=== PATIENT | female | born 1960 | race Caucasian/White ===

== ENCOUNTER 2017-05-06 13:35 | Emergency (ER) | payer OTHER ==
[~2017-05-06] VITALS: Ht 160 cm; Wt 128.4 kg
[~2017-05-06 13:35] MED LIST: ABAT250V; ADVAIR; ALBIPROI; ALBU8HFA2 INH; ALBU90I INH; ALBU90OI61 INH; AMOCLA875 PO; AMOX500 PO; ANTOXYBENA OT; AZIT250 PO; Antivert25 MG PO; BENTYL10 MG PO; BENTYL20 MG PO; CEPH500 PO; CHLORPROMAZINE; CIPR500 PO; CITRATE OF MAG296 ML PO; CLON2 PO; CODACE30; CYCL10; CYCL10 PO; DESV50 PO; DILANTIN 400 MG; DOXY100 PO; FLUSAL5005; FLUT110OIA IH; FLUT220OIA IH; GUAN1; HYDACE5 PO; HYDPAM25 PO; IBUP800 PO; LAMO100 PO; LAMO25 PO; LORA.5 PO; LORA1 PO; META400 PO; METAMUCIL660 GM PO; METF500 PO; METO10 PO; METO100ER; MIRALAX17 GM PO; MIRT15; MIRT15 PO; MULVITMINE; MUPI2TO TOP; NAPR550 PO; OLAN10 PO; ONDA4 PO; ONDA4ODT SL; ONDA8ODT MM; OXYACE5T PO; OXYACE7.5T PO; OXYC10ER PO; OXYC5 PO; PENVK500 PO; PHENA200 PO; PROC10 PO; PROCODE120 PO; PROM12.5S PR; PROM25 PO; PROM25S PR; Promethegan12.5 MG RC; QUET200; QUIN10; RANI150; RISP4; RXALBOI INH; RXMETA400 PO; RXOXYACE PO; RXPROM25 PO; RXTRAM50 PO; Roxicodone5 MG PO; SENNP; SULTRIDS PO; TAMS.4ER PO; TRAM50 PO; TRAZ100; TRAZ150T57 PO; TRAZ50 PO; Trazodone HCl300 MG; Ultram50 MG PO; VARE1 PO; VIMOVO 500-201 EACH PO; WATER PILL?; Zofran Odt4 MG SL; Zofran4 MG PO; Zofran8 MG PO; [UNRECOGNIZED DRUG - REMARK]
[2017-05-06] MEDS ORDERED: QUET25 PO (14:14)
[2017-05-06] MEDS ORDERED: CLON.1 PO (14:14)
[2017-05-06] MEDS ORDERED: Oxycodone HCl5 M1 PO (14:28)
[2017-05-06] MEDS ORDERED: PRAZ1 PO (14:31)
[2017-05-06] MEDS ORDERED: PROC5 PO (14:32)
[2017-05-06] MEDS ORDERED: HYDPAM50 PO (14:33)
[2018-02-13] MEDS ORDERED: KETO10 PO (11:51)
[2018-02-13] MEDS ORDERED: CYCL10 PO (11:51)
== END 2017-05-06 14:27 | disposition home or self-care (01) ==
LOC: ER 13:35
DX: T42.6X1A Poisoning by other antiepileptic and sedative-hypnotic drugs, accidental (unintentional), initial encounter (principal); G89.29 Other chronic pain; M54.9 Dorsalgia, unspecified; M79.606 Pain in leg, unspecified; F43.9 Reaction to severe stress, unspecified; F31.9 Bipolar disorder, unspecified; K08.9 Disorder of teeth and supporting structures, unspecified; E66.01 Morbid (severe) obesity due to excess calories; E11.9 Type 2 diabetes mellitus without complications; F17.200 Nicotine dependence, unspecified, uncomplicated; Z88.8 Allergy status to other drugs, medicaments and biological substances; Z88.5 Allergy status to narcotic agent; Z79.899 Other long term (current) drug therapy; Z86.19 Personal history of other infectious and parasitic diseases; Z90.710 Acquired absence of both cervix and uterus; Z68.43 Body mass index [BMI] 50.0-59.9, adult
CPT/HCPCS: 99283

== ENCOUNTER 2017-05-14 14:13 | Inpatient (IN) | payer OTHER ==
[~2017-05-14] VITALS: Ht 162.6 cm; Wt 139.0 kg
[~2017-05-14 14:13] MED LIST changes: +CLON.1 PO; +HYDPAM50 PO; +Oxycodone HCl5 M1 PO; +PRAZ1 PO; +PROC5 PO; +QUET25 PO
[2017-05-14 21:38] LABS: Influenza A Positive (NEGATIVE); Influenza B Negative (NEGATIVE)
[2017-05-15] MEDS ORDERED: ZYPREXA ZYDIS PO (02:19)
[2017-05-15 05:37] LABS: BASOPHILS ABSOLUTE AUTO 0.01 K/mm3 (0.00-0.23); BASOPHILS PERCENT AUTO 0 % (0-2); EOSINOPHILS PERCENT AUTO 0 % (0-6); Hematocrit 40.6 % (33.0-51.0); IMMATURE GRAN ABSOLUTE AUTO 0.08 K/mm3 (0.00-0.10); IMMATURE GRAN PERCENT AUTO 1 % (0-1); LYMPHOCYTES ABSOLUTE AUTO 0.86 K/mm3 (0.84-5.20); LYMPHOCYTES PERCENT AUTO 8 % (21-46); MONOCYTES ABSOLUTE AUTO 0.53 K/mm3 (0.16-1.47); MONOCYTES PERCENT AUTO 5 % (4-13); Mean Corpuscular HGB 29.1 pg (26.0-34.0); Mean Corpuscular Volume 91 fL (80-100); Mean Platelet Volume 11.8 fL (9.1-12.4); NEUTROPHILS ABSOLUTE AUTO 8.71 K/mm3 (1.96-9.15); NEUTROPHILS PERCENT AUTO 86 % (41-73); Platelet Count 86 K/mm3 (150-400); RDW Coefficient Variation 16.2 % (11.7-14.2); Red Blood Cell Count 4.47 M/mm3 (3.80-5.20); White Blood Cell Count 10.19 K/mm3 (4.00-11.30)
[2017-05-15 05:57] LABS: Anion Gap 5 mmol/L (6-16); Blood Urea Nitrogen 8 mg/dL (8-24); Bun/Creatinine Ratio 18.1 (12.0-20.0); CO2, Blood 27 mmol/L (21-32); Calcium, Blood 7.7 mg/dL (8.5-10.1); Chloride, Blood 103 mmol/L (98-108); Creatinine, Blood 0.44 mg/dL (0.40-1.00); Glomerular Filtration Rate >60 (60-); Glucose, Blood 325 mg/dL (70-99); Sodium, Blood 135 mmol/L (136-145)
[2017-05-15] MEDS ORDERED: VALSARTAN-HCTZ1 EACH PO (08:34)
[2017-05-15] MEDS ORDERED: RANI150 PO (08:35)
[2017-05-15] MEDS ORDERED: NAPR550 PO (08:35)
[2017-05-15] MEDS ORDERED: BENZ100A PO (08:36)
[2017-05-15] MEDS ORDERED: GABA300 (08:38)
[2017-05-15] MEDS ORDERED: ASPI81CH PO (08:39)
[2017-05-16 05:16] LABS: BASOPHILS ABSOLUTE AUTO 0.02 K/mm3 (0.00-0.23); BASOPHILS PERCENT AUTO 0 % (0-2); EOSINOPHILS PERCENT AUTO 0 % (0-6); Hematocrit 40.2 % (33.0-51.0); Hemoglobin 12.9 g/dL (11.5-16.0); IMMATURE GRAN ABSOLUTE AUTO 0.11 K/mm3 (0.00-0.10); IMMATURE GRAN PERCENT AUTO 1 % (0-1); LYMPHOCYTES ABSOLUTE AUTO 1.09 K/mm3 (0.84-5.20); LYMPHOCYTES PERCENT AUTO 8 % (21-46); MONOCYTES ABSOLUTE AUTO 0.87 K/mm3 (0.16-1.47); MONOCYTES PERCENT AUTO 6 % (4-13); Mean Corpuscular HGB 29.5 pg (26.0-34.0); Mean Corpuscular HGB Conc 32.1 g/dL (31.5-36.5); Mean Corpuscular Volume 92 fL (80-100); Mean Platelet Volume 11.5 fL (9.1-12.4); NEUTROPHILS ABSOLUTE AUTO 11.88 K/mm3 (1.96-9.15); NEUTROPHILS PERCENT AUTO 85 % (41-73); Platelet Count 105 K/mm3 (150-400); RDW Coefficient Variation 16.9 % (11.7-14.2); RDW Standard Deviation 56.5 fL (35.1-46.3); Red Blood Cell Count 4.38 M/mm3 (3.80-5.20); White Blood Cell Count 13.97 K/mm3 (4.00-11.30)
[2017-05-16 05:40] LABS: Anion Gap 4 mmol/L (6-16); Blood Urea Nitrogen 12 mg/dL (8-24); Bun/Creatinine Ratio 26.7 (12.0-20.0); CO2, Blood 28 mmol/L (21-32); Chloride, Blood 101 mmol/L (98-108); Creatinine, Blood 0.45 mg/dL (0.40-1.00); Glomerular Filtration Rate >60 (60-); Glucose, Blood 335 mg/dL (70-99); Potassium, Blood 4.8 mmol/L (3.5-5.5); Sodium, Blood 133 mmol/L (136-145)
[2017-05-19 15:51] LABS: BASOPHILS ABSOLUTE AUTO 0.04 K/mm3 (0.00-0.23); BASOPHILS PERCENT AUTO 0 % (0-2); EOSINOPHILS PERCENT AUTO 0 % (0-6); Hematocrit 44.3 % (33.0-51.0); Hemoglobin 14.4 g/dL (11.5-16.0); IMMATURE GRAN PERCENT AUTO 1 % (0-1); LYMPHOCYTES ABSOLUTE AUTO 0.98 K/mm3 (0.84-5.20); LYMPHOCYTES PERCENT AUTO 7 % (21-46); MONOCYTES ABSOLUTE AUTO 1.65 K/mm3 (0.16-1.47); MONOCYTES PERCENT AUTO 12 % (4-13); Mean Corpuscular HGB 28.9 pg (26.0-34.0); Mean Corpuscular HGB Conc 32.5 g/dL (31.5-36.5); Mean Platelet Volume 10.4 fL (9.1-12.4); NEUTROPHILS ABSOLUTE AUTO 11.46 K/mm3 (1.96-9.15); NEUTROPHILS PERCENT AUTO 80 % (41-73); Platelet Count 161 K/mm3 (150-400); RDW Coefficient Variation 16.3 % (11.7-14.2); RDW Standard Deviation 53.2 fL (35.1-46.3); Red Blood Cell Count 4.99 M/mm3 (3.80-5.20); White Blood Cell Count 14.33 K/mm3 (4.00-11.30)
[2017-05-19 15:55] LABS: Mean Corpuscular Volume 89 fL (80-100)
[2017-05-19 16:50] LABS: Albumin, Blood 2.9 g/dL (3.4-5.0); Anion Gap 6 mmol/L (6-16); Blood Urea Nitrogen 20 mg/dL (8-24); Bun/Creatinine Ratio 28.7 (12.0-20.0); CO2, Blood 34 mmol/L (21-32); Calcium, Blood 8.9 mg/dL (8.5-10.1); Chloride, Blood 95 mmol/L (98-108); Glomerular Filtration Rate >60 (60-); Glucose, Blood 232 mg/dL (70-99); Phosphorus, Blood 2.9 mg/dL (2.5-4.9); Potassium, Blood 4.5 mmol/L (3.5-5.5); Sodium, Blood 135 mmol/L (136-145)
[2017-05-20 05:46] LABS: BASOPHILS ABSOLUTE AUTO 0.02 K/mm3 (0.00-0.23); BASOPHILS PERCENT AUTO 0 % (0-2); EOSINOPHILS PERCENT AUTO 0 % (0-6); Hematocrit 42.7 % (33.0-51.0); Hemoglobin 13.9 g/dL (11.5-16.0); IMMATURE GRAN PERCENT AUTO 2 % (0-1); LYMPHOCYTES ABSOLUTE AUTO 0.83 K/mm3 (0.84-5.20); LYMPHOCYTES PERCENT AUTO 6 % (21-46); MONOCYTES ABSOLUTE AUTO 1.54 K/mm3 (0.16-1.47); MONOCYTES PERCENT AUTO 12 % (4-13); Mean Corpuscular HGB 29.3 pg (26.0-34.0); Mean Corpuscular HGB Conc 32.6 g/dL (31.5-36.5); Mean Corpuscular Volume 90 fL (80-100); Mean Platelet Volume 10.9 fL (9.1-12.4); NEUTROPHILS ABSOLUTE AUTO 10.38 K/mm3 (1.96-9.15); NEUTROPHILS PERCENT AUTO 80 % (41-73); Platelet Count 157 K/mm3 (150-400); RDW Coefficient Variation 16.2 % (11.7-14.2); RDW Standard Deviation 54.2 fL (35.1-46.3); Red Blood Cell Count 4.75 M/mm3 (3.80-5.20); White Blood Cell Count 12.97 K/mm3 (4.00-11.30)
[2017-05-20 06:19] LABS: Anion Gap 4 mmol/L (6-16); Blood Urea Nitrogen 24 mg/dL (8-24); Bun/Creatinine Ratio 46.5 (12.0-20.0); CO2, Blood 33 mmol/L (21-32); Calcium, Blood 8.4 mg/dL (8.5-10.1); Chloride, Blood 95 mmol/L (98-108); Creatinine, Blood 0.52 mg/dL (0.40-1.00); Glomerular Filtration Rate >60 (60-); Glucose, Blood 268 mg/dL (70-99); Potassium, Blood 4.9 mmol/L (3.5-5.5); Sodium, Blood 132 mmol/L (136-145)
[2017-05-22 05:17] LABS: Hematocrit 45.3 % (33.0-51.0); Hemoglobin 14.7 g/dL (11.5-16.0); Mean Corpuscular HGB 29.2 pg (26.0-34.0); Mean Corpuscular HGB Conc 32.5 g/dL (31.5-36.5); Mean Corpuscular Volume 90 fL (80-100); Mean Platelet Volume 10.4 fL (9.1-12.4); Platelet Count 191 K/mm3 (150-400); RDW Coefficient Variation 16.8 % (11.7-14.2); RDW Standard Deviation 55.8 fL (35.1-46.3); Red Blood Cell Count 5.04 M/mm3 (3.80-5.20); White Blood Cell Count 14.12 K/mm3 (4.00-11.30)
[2017-05-22 06:09] LABS: Anion Gap 5 mmol/L (6-16); Blood Urea Nitrogen 25 mg/dL (8-24); Bun/Creatinine Ratio 44.8 (12.0-20.0); CO2, Blood 33 mmol/L (21-32); Calcium, Blood 8.8 mg/dL (8.5-10.1); Chloride, Blood 96 mmol/L (98-108); Creatinine, Blood 0.56 mg/dL (0.40-1.00); Glomerular Filtration Rate >60 (60-); Glucose, Blood 137 mg/dL (70-99); Potassium, Blood 4.7 mmol/L (3.5-5.5); Sodium, Blood 134 mmol/L (136-145)
[2017-05-24] MEDS ORDERED: ROXICODONE5 MG PO (11:12)
[2017-05-24] MEDS ORDERED: METF500C PO (11:14)
[2017-05-24] MEDS ORDERED: PRED20 PO (11:16)
[2017-05-24] MEDS ORDERED: LORA.5 PO (11:17)
[2018-02-13] MEDS ORDERED: CYCL10 PO (11:51)
[2018-02-13] MEDS ORDERED: KETO10 PO (11:51)
== END 2017-05-24 13:30 | disposition home or self-care (01) | DRG 871 ==
LOC: ER 14:13 → MEDS 14:14 → ENPENDDIS 05-24 11:17 → MEDS 05-24 13:30
PROVIDERS: Family Medicine; Hospitalist; Internal Medicine; Internal Medicine Critical Care Medicine
DX: A41.9 Sepsis, unspecified organism (principal); J96.21 Acute and chronic respiratory failure with hypoxia; D69.6 Thrombocytopenia, unspecified; E87.1 Hypo-osmolality and hyponatremia; E11.65 Type 2 diabetes mellitus with hyperglycemia; E66.01 Morbid (severe) obesity due to excess calories; J44.1 Chronic obstructive pulmonary disease with (acute) exacerbation; Z68.42 Body mass index [BMI] 45.0-49.9, adult; F17.210 Nicotine dependence, cigarettes, uncomplicated; B18.2 Chronic viral hepatitis C; M79.7 Fibromyalgia; F43.10 Post-traumatic stress disorder, unspecified; G89.4 Chronic pain syndrome; R74.0 Nonspecific elevation of levels of transaminase and lactic acid dehydrogenase [LDH]; G47.33 Obstructive sleep apnea (adult) (pediatric); K27.9 Peptic ulcer, site unspecified, unspecified as acute or chronic, without hemorrhage or perforation; I10 Essential (primary) hypertension; F41.9 Anxiety disorder, unspecified; J98.01 Acute bronchospasm; F32.9 Major depressive disorder, single episode, unspecified; T38.0X5A Adverse effect of glucocorticoids and synthetic analogues, initial encounter; J10.1 Influenza due to other identified influenza virus with other respiratory manifestations; Z99.81 Dependence on supplemental oxygen; Z79.899 Other long term (current) drug therapy; Z88.1 Allergy status to other antibiotic agents; Z86.14 Personal history of Methicillin resistant Staphylococcus aureus infection
CPT/HCPCS: 36415; 71046; 80048; 80053; 80069; 82947; 83036; 83605; 84145; 84484; 85025; 85027; 87070; 87205; 87804; 93005; 93010; 94640; 94644; 94760; 96361; 96365; 96366; 96367; 96372; 96374; 96375; 96376; 99285; G0378; J0360; J0456; J0696; J1650; J1815; J1885; J2405; J2920; J2930; J7030; J7050; Q0164; Q0177

== ENCOUNTER → 2017-06-06 | Outpatient (CLI) | payer OTHER ==
[~2017-06-06] MED LIST changes: +AMIT25 PO; +ASPI81CH PO; +BENZ100A PO; +ERYT1OIN BOTHEYES; +GABA300; +Hydroxyzine HCl50 MG PO; +KETO10 PO; +METF500C PO; +PRED20 PO; +RANI150 PO; +ROXICODONE5 MG PO; +VALSARTAN-HCTZ1 EACH PO; +ZYPREXA ZYDIS PO
[2017-06-06 10:15] LABS: BASOPHILS ABSOLUTE AUTO 0.04 K/mm3 (0.00-0.23); BASOPHILS PERCENT AUTO 0 % (0-2); EOSINOPHILS ABSOLUTE AUTO 0.13 K/mm3 (0.00-0.68); EOSINOPHILS PERCENT AUTO 1 % (0-6); Hematocrit 41.9 % (33.0-51.0); Hemoglobin 13.9 g/dL (11.5-16.0); IMMATURE GRAN ABSOLUTE AUTO 0.04 K/mm3 (0.00-0.10); IMMATURE GRAN PERCENT AUTO 0 % (0-1); LYMPHOCYTES ABSOLUTE AUTO 2.12 K/mm3 (0.84-5.20); LYMPHOCYTES PERCENT AUTO 23 % (21-46); MONOCYTES ABSOLUTE AUTO 1.28 K/mm3 (0.16-1.47); MONOCYTES PERCENT AUTO 14 % (4-13); Mean Corpuscular HGB Conc 33.2 g/dL (31.5-36.5); Mean Corpuscular Volume 90 fL (80-100); Mean Platelet Volume 10.7 fL (9.1-12.4); NEUTROPHILS ABSOLUTE AUTO 5.51 K/mm3 (1.96-9.15); NEUTROPHILS PERCENT AUTO 61 % (41-73); Platelet Count 74 K/mm3 (150-400); RDW Coefficient Variation 17.1 % (11.7-14.2); RDW Standard Deviation 55.9 fL (35.1-46.3); Red Blood Cell Count 4.64 M/mm3 (3.80-5.20); White Blood Cell Count 9.12 K/mm3 (4.00-11.30)
== END | disposition home or self-care (01) ==
LOC: LAB EV 10:12
PROVIDERS: Physician Assistant
DX: R21 Rash and other nonspecific skin eruption (principal)
CPT/HCPCS: 85025

== ENCOUNTER 2017-06-20 23:34 | Observation (INO) | payer OTHER ==
[~2017-06-20] VITALS: Ht 162.6 cm; Wt 129.0 kg
[~2017-06-20 23:34] MED LIST changes: -AMIT25 PO; -ERYT1OIN BOTHEYES; -Hydroxyzine HCl50 MG PO; -KETO10 PO
[2017-06-20] MEDS ORDERED: AMIT25 PO (23:53)
[2017-06-20] MEDS ORDERED: Hydroxyzine HCl50 MG PO (23:53)
[2017-06-21 00:20] LABS: PO2 Arterial 60.2 mmHg (80-100); pH Blood Arterial 7.37 (7.35-7.45)
[2017-06-21 00:26] LABS: BASOPHILS ABSOLUTE AUTO 0.05 K/mm3 (0.00-0.23); BASOPHILS PERCENT AUTO 1 % (0-2); EOSINOPHILS ABSOLUTE AUTO 0.04 K/mm3 (0.00-0.68); EOSINOPHILS PERCENT AUTO 0 % (0-6); Hematocrit 41.2 % (33.0-51.0); Hemoglobin 13.6 g/dL (11.5-16.0); IMMATURE GRAN ABSOLUTE AUTO 0.07 K/mm3 (0.00-0.10); IMMATURE GRAN PERCENT AUTO 1 % (0-1); LYMPHOCYTES ABSOLUTE AUTO 2.01 K/mm3 (0.84-5.20); LYMPHOCYTES PERCENT AUTO 20 % (21-46); MONOCYTES ABSOLUTE AUTO 1.31 K/mm3 (0.16-1.47); MONOCYTES PERCENT AUTO 13 % (4-13); Mean Corpuscular HGB 29.6 pg (26.0-34.0); Mean Corpuscular Volume 90 fL (80-100); Mean Platelet Volume 10.9 fL (9.1-12.4); NEUTROPHILS ABSOLUTE AUTO 6.36 K/mm3 (1.96-9.15); NEUTROPHILS PERCENT AUTO 65 % (41-73); Platelet Count 168 K/mm3 (150-400); RDW Coefficient Variation 15.7 % (11.7-14.2); RDW Standard Deviation 51.9 fL (35.1-46.3); Red Blood Cell Count 4.59 M/mm3 (3.80-5.20); White Blood Cell Count 9.84 K/mm3 (4.00-11.30)
[2017-06-21 00:59] LABS: Alanine Aminotransfer (ALT/SGP 86 U/L (12-78); Albumin, Blood 3.1 g/dL (3.4-5.0); Albumin/Globulin Ratio 0.7 (0.8-1.8); Alk Phos 122 U/L (50-136); Anion Gap 6 mmol/L (6-16); Aspartate Aminotrans (AST/SGOT 80 U/L (12-37); Bilirubin, Total 0.5 mg/dL (0.1-1.0); Blood Urea Nitrogen 18 mg/dL (8-24); Bun/Creatinine Ratio 26.5 (12.0-20.0); CO2, Blood 26 mmol/L (21-32); Calcium, Blood 8.7 mg/dL (8.5-10.1); Chloride, Blood 104 mmol/L (98-108); Creatinine, Blood 0.68 mg/dL (0.40-1.00); Ethanol (Alcohol), Blood, Med <3 mg/dL; Globulin, Blood 4.2 g/dL (2.2-4.0); Glomerular Filtration Rate >60 (60-); Glucose, Blood 138 mg/dL (70-99); Potassium, Blood 4.2 mmol/L (3.5-5.5); Salicylate 3.2 mg/dL (2.8-20.0); Sodium, Blood 136 mmol/L (136-145); Total Protein, Blood 7.3 g/dL (6.4-8.2)
[2017-06-21 01:07] LABS: Acetaminophen, Random <2.0 ug/mL (10.0-30.0)
[2017-06-21 04:24] LABS: BASOPHILS ABSOLUTE AUTO 0.05 K/mm3 (0.00-0.23); BASOPHILS PERCENT AUTO 0 % (0-2); EOSINOPHILS ABSOLUTE AUTO 0.02 K/mm3 (0.00-0.68); EOSINOPHILS PERCENT AUTO 0 % (0-6); Hematocrit 40.4 % (33.0-51.0); IMMATURE GRAN PERCENT AUTO 1 % (0-1); LYMPHOCYTES ABSOLUTE AUTO 1.44 K/mm3 (0.84-5.20); LYMPHOCYTES PERCENT AUTO 13 % (21-46); MONOCYTES ABSOLUTE AUTO 1.28 K/mm3 (0.16-1.47); MONOCYTES PERCENT AUTO 11 % (4-13); Mean Corpuscular HGB 28.9 pg (26.0-34.0); Mean Corpuscular HGB Conc 32.2 g/dL (31.5-36.5); Mean Corpuscular Volume 90 fL (80-100); Mean Platelet Volume 11.2 fL (9.1-12.4); NEUTROPHILS ABSOLUTE AUTO 8.31 K/mm3 (1.96-9.15); NEUTROPHILS PERCENT AUTO 74 % (41-73); Platelet Count 180 K/mm3 (150-400); RDW Coefficient Variation 15.8 % (11.7-14.2); RDW Standard Deviation 52.6 fL (35.1-46.3)
[2017-06-21 04:46] LABS: Alanine Aminotransfer (ALT/SGP 84 U/L (12-78); Albumin, Blood 3.2 g/dL (3.4-5.0); Albumin/Globulin Ratio 0.8 (0.8-1.8); Alk Phos 121 U/L (50-136); Anion Gap 8 mmol/L (6-16); Aspartate Aminotrans (AST/SGOT 76 U/L (12-37); Bilirubin, Total 0.6 mg/dL (0.1-1.0); Blood Urea Nitrogen 15 mg/dL (8-24); Bun/Creatinine Ratio 23.8 (12.0-20.0); CO2, Blood 27 mmol/L (21-32); Calcium, Blood 8.9 mg/dL (8.5-10.1); Chloride, Blood 104 mmol/L (98-108); Creatinine, Blood 0.63 mg/dL (0.40-1.00); Glomerular Filtration Rate >60 (60-); Glucose, Blood 137 mg/dL (70-99); Sodium, Blood 139 mmol/L (136-145); Total Protein, Blood 7.2 g/dL (6.4-8.2)
[2017-06-21 05:01] LABS: Source, Urine Clean Catch
[2017-06-21 05:08] LABS: Bilirubin, Urine Neg (Neg); Blood, Urine Neg (Neg); Glucose Qualitative, Urine Neg (Neg); Ketones, Urine Neg (Neg); Leukocyte Esterase, Urine Neg (Neg); Nitrite, Urine Neg (Neg); Protein, Urine Neg (Neg); Specific Gravity, Urine 1.015 (1.003-1.022); Urobilinogen, Urine 1+ (Normal)
[2017-06-21 05:22] LABS: U Amphetamine Screen Not Detected; U Barbituate Screen Not Detected; U Benzodiazapine Screen Not Detected; U Buprenorphine Screen Not Detected; U Cannabinoids Screen DETECTED; U Cocaine Screen Not Detected; U Methadone Screen Not Detected; U Methamphetamine Screen Not Detected; U Opiates Screen Not Detected; U Oxycodone Screen Not Detected; U Phencyclidine Screen Not Detected; U Propoxyphene Screen Not Detected
[2017-06-21 05:30] LABS: Appearance, Urine Clear (Clear); Color, Urine Yellow (P-Yellow)
[2018-02-13] MEDS ORDERED: KETO10 PO (11:51)
[2018-02-13] MEDS ORDERED: CYCL10 PO (11:51)
== END 2017-06-22 15:03 | disposition home health service (06) ==
LOC: ER 23:34 → ICUW 23:35 → MEDS 06-21 10:12 → ENPENDDIS 06-22 10:00 → MEDS 06-22 15:03
PROVIDERS: Emergency Medicine; Internal Medicine
DX: T50.901A Poisoning by unspecified drugs, medicaments and biological substances, accidental (unintentional), initial encounter (principal); G93.40 Encephalopathy, unspecified; J44.9 Chronic obstructive pulmonary disease, unspecified; M79.7 Fibromyalgia; F43.10 Post-traumatic stress disorder, unspecified; G89.29 Other chronic pain; E66.01 Morbid (severe) obesity due to excess calories; Z68.42 Body mass index [BMI] 45.0-49.9, adult; Z88.8 Allergy status to other drugs, medicaments and biological substances; F17.210 Nicotine dependence, cigarettes, uncomplicated; Z79.891 Long term (current) use of opiate analgesic; Z79.82 Long term (current) use of aspirin; Z79.899 Other long term (current) drug therapy
CPT/HCPCS: 36415; 36600; 80053; 80175; 81003; 81025; 82803; 82947; 84439; 84443; 85025; 93005; 93010; 96361; 96372; 96374; 96375; 96376; 97116; 97162; 97530; 99285; G0378; G0480; G8978; G8979; J1650; J2060; J2405; J7030

== ENCOUNTER → 2017-12-13 | Outpatient (CLI) | payer OTHER ==
[~2017-12-13] MED LIST changes: +AMIT25 PO; +ERYT1OIN BOTHEYES; +Hydroxyzine HCl50 MG PO
== END ==
LOC: LAB SHORT 09:11 → LAB 09:11
DX: R35.0 Frequency of micturition (principal)
CPT/HCPCS: 87086

== ENCOUNTER 2017-12-18 17:17 | Emergency (ER) | payer OTHER ==
[~2017-12-18] VITALS: Ht 162.6 cm; Wt 135.6 kg
[~2017-12-18 17:17] MED LIST changes: -ERYT1OIN BOTHEYES
[2017-12-18] MEDS ORDERED: ERYT1OIN BOTHEYES (17:47)
== END 2017-12-18 17:58 | disposition home or self-care (01) ==
LOC: ER 17:17
DX: H10.9 Unspecified conjunctivitis (principal); Z88.1 Allergy status to other antibiotic agents; Z79.899 Other long term (current) drug therapy; Z79.82 Long term (current) use of aspirin; Z79.84 Long term (current) use of oral hypoglycemic drugs; E11.9 Type 2 diabetes mellitus without complications; F31.9 Bipolar disorder, unspecified; F17.210 Nicotine dependence, cigarettes, uncomplicated
CPT/HCPCS: 99282

== ENCOUNTER 2019-02-19 08:40 | Inpatient (IN) | payer OTHER ==
[~2019-02-19] VITALS: Ht 162.6 cm; Wt 132.0 kg
[~2019-02-19 08:40] MED LIST changes: +ERYT1OIN BOTHEYES; +KETO10 PO
[2019-02-19] MEDS ORDERED: QUET200 PO (09:27)
[2019-02-19 09:28] LABS: BASOPHILS ABSOLUTE AUTO 0.03 K/mm3 (0.00-0.23); BASOPHILS PERCENT AUTO 0 % (0-2); EOSINOPHILS ABSOLUTE AUTO 0.02 K/mm3 (0.00-0.68); EOSINOPHILS PERCENT AUTO 0 % (0-6); Hematocrit 41.2 % (33.0-51.0); IMMATURE GRAN ABSOLUTE AUTO 0.04 K/mm3 (0.00-0.10); IMMATURE GRAN PERCENT AUTO 0 % (0-1); LYMPHOCYTES ABSOLUTE AUTO 1.44 K/mm3 (0.84-5.20); LYMPHOCYTES PERCENT AUTO 13 % (21-46); MONOCYTES PERCENT AUTO 12 % (4-13); Mean Corpuscular HGB 31.6 pg (26.0-34.0); Mean Corpuscular HGB Conc 31.6 g/dL (31.5-36.5); Mean Corpuscular Volume 100 fL (80-100); Mean Platelet Volume 10.8 fL (9.1-12.4); NEUTROPHILS PERCENT AUTO 75 % (41-73); Platelet Count 115 K/mm3 (150-400); RDW Coefficient Variation 13.6 % (11.7-14.2); RDW Standard Deviation 50.3 fL (35.1-46.3); Red Blood Cell Count 4.11 M/mm3 (3.80-5.20); White Blood Cell Count 11.13 K/mm3 (4.00-11.30)
[2019-02-19 09:38] LABS: Alanine Aminotransfer (ALT/SGP 31 U/L (12-78); Albumin, Blood 3.5 g/dL (3.4-5.0); Albumin/Globulin Ratio 0.9 (0.8-1.8); Alk Phos 95 U/L (50-136); Anion Gap 5 mmol/L (6-16); Aspartate Aminotrans (AST/SGOT 37 U/L (12-37); Bilirubin, Total 0.5 mg/dL (0.1-1.0); Blood Urea Nitrogen 9 mg/dL (8-24); Bun/Creatinine Ratio 14.8 (12.0-20.0); CO2, Blood 32 mmol/L (21-32); Calcium, Blood 8.7 mg/dL (8.5-10.1); Chloride, Blood 101 mmol/L (98-108); Creatinine, Blood 0.61 mg/dL (0.40-1.00); Globulin, Blood 3.8 g/dL (2.2-4.0); Glomerular Filtration Rate >60 (60-); Glucose, Blood 113 mg/dL (70-99); Sodium, Blood 138 mmol/L (136-145); Total Protein, Blood 7.3 g/dL (6.4-8.2); Troponin I <0.015 ng/mL (0.000-0.040)
[2019-02-19] MEDS ORDERED: BUSP10 PO (09:47)
[2019-02-19] MEDS ORDERED: CLON.5 PO (10:25)
[2019-02-19 10:33] LABS: Influenza A Negative (NEGATIVE); Influenza B Negative (NEGATIVE)
[2019-02-19 14:51] LABS: Adenovirus Not Detected (NOT DETECT); Bordetella pertussis Not Detected (NOT DETECT); Chlamydophila pneumoniae Not Detected (NOT DETECT); Coronavirus 229E Not Detected (NOT DETECT); Coronavirus HKU1 Not Detected (NOT DETECT); Coronavirus NL63 Not Detected (NOT DETECT); Coronavirus OC43 Not Detected (NOT DETECT); Human Metapneumovirus Not Detected (NOT DETECT); Human Rhinovirus/Enterovirus Not Detected (NOT DETECT); Influenza A Not Detected (NOT DETECT); Influenza A/2009-H1 Not Detected (NOT DETECT); Influenza A/H1 Not Detected (NOT DETECT); Influenza A/H3 Not Detected (NOT DETECT); Influenza B Not Detected (NOT DETECT); Mycoplasma pneumoniae Not Detected (NOT DETECT); Parainfluenza Virus 1 Not Detected (NOT DETECT); Parainfluenza Virus 2 Not Detected (NOT DETECT); Parainfluenza Virus 3 Not Detected (NOT DETECT); Parainfluenza Virus 4 Not Detected (NOT DETECT); Respiratory Syncytial Virus Not Detected (NOT DETECT)
--- NOTE | 2019-02-19 18:36 | NUR ---
SHIFT SUMMARY PT ALERT AND ORIENTED. VS STABLE. O2 SATS REMAIN ABOVE 90% ON 4L WITH PT'S HOME MASK SHE REPORTS A "SIMPLE MASK". BE STABLE. HR NSR. PT COMPLAINS OF PAIN IN HER HIPS THAT IS CHRONIC. PT MEDICATED AND REPOSITIONED NEEDED. PT ABLE TO AMBULATE [place] [facility] [place]. PT DYSPNEIC ON EXERTION. WILL CONTINUE TO MONITOR AND REPORT TO ONCOMING RN. CALL LIGHT IN REACH.
[2019-02-19 18:51] LABS: U Amphetamine Screen Not Detected; U Barbituate Screen Not Detected; U Benzodiazapine Screen Not Detected; U Buprenorphine Screen Not Detected; U Cannabinoids Screen DETECTED; U Cocaine Screen Not Detected; U Methadone Screen Not Detected; U Methamphetamine Screen Not Detected; U Opiates Screen Not Detected; U Oxycodone Screen DETECTED; U Phencyclidine Screen Not Detected; U Propoxyphene Screen Not Detected
--- NOTE | 2019-02-19 22:00 | NUR ---
Assumed care Pt presents sitting in bed, tripoding and working hard to breathe. Pt complains of SOB at time of initial assessment. RT in with pt at bedside for breathing tx and sx quickly resolved. Pt c/o anxiety and this RN educated pt on medication times and administration precautions. Pt verbalized understanding and has been cooperative with care. VSS with exception of tachypnea. see shift assessment for detailed systems assessment. This pt is alert and oriented but exhibits anxiety. No acute distress noted at this time. Will continue to monitor and update as needed.
[2019-02-20 03:20] LABS: BASOPHILS PERCENT AUTO 0 % (0-2); EOSINOPHILS PERCENT AUTO 0 % (0-6); Hematocrit 40.6 % (33.0-51.0); Hemoglobin 12.6 g/dL (11.5-16.0); IMMATURE GRAN ABSOLUTE AUTO 0.03 K/mm3 (0.00-0.10); IMMATURE GRAN PERCENT AUTO 0 % (0-1); LYMPHOCYTES ABSOLUTE AUTO 0.65 K/mm3 (0.84-5.20); LYMPHOCYTES PERCENT AUTO 10 % (21-46); MONOCYTES ABSOLUTE AUTO 0.31 K/mm3 (0.16-1.47); MONOCYTES PERCENT AUTO 5 % (4-13); Mean Corpuscular HGB 31.3 pg (26.0-34.0); Mean Corpuscular Volume 101 fL (80-100); Mean Platelet Volume 10.6 fL (9.1-12.4); NEUTROPHILS ABSOLUTE AUTO 5.77 K/mm3 (1.96-9.15); NEUTROPHILS PERCENT AUTO 85 % (41-73); Platelet Count 102 K/mm3 (150-400); RDW Coefficient Variation 13.5 % (11.7-14.2); Red Blood Cell Count 4.03 M/mm3 (3.80-5.20); White Blood Cell Count 6.76 K/mm3 (4.00-11.30)
[2019-02-20 03:36] LABS: Alanine Aminotransfer (ALT/SGP 25 U/L (12-78); Albumin, Blood 3.3 g/dL (3.4-5.0); Albumin/Globulin Ratio 0.8 (0.8-1.8); Alk Phos 88 U/L (50-136); Anion Gap 3 mmol/L (6-16); Aspartate Aminotrans (AST/SGOT 28 U/L (12-37); Bilirubin, Total 0.4 mg/dL (0.1-1.0); Blood Urea Nitrogen 10 mg/dL (8-24); Bun/Creatinine Ratio 16.4 (12.0-20.0); CO2, Blood 34 mmol/L (21-32); Calcium, Blood 8.7 mg/dL (8.5-10.1); Chloride, Blood 99 mmol/L (98-108); Creatinine, Blood 0.61 mg/dL (0.40-1.00); Glomerular Filtration Rate >60 (60-); Glucose, Blood 169 mg/dL (70-99); Potassium, Blood 4.4 mmol/L (3.5-5.5); Sodium, Blood 136 mmol/L (136-145); Total Protein, Blood 7.3 g/dL (6.4-8.2)
--- NOTE | 2019-02-20 07:56 | NUR ---
Shift Summary Pt with uneventful night, no changes to oxygen demand, pt wore cpap while sleeping and "simple face mask" at 4L when awake. VSS and no signs of distress noted. No acute declines noted this shift, no changes from initial shift assessment. pt transfer steady with SBA to BSC for voiding. GI panal still yet to be collected d/t absence of BM this shift. Pt takes pills whole with water, uses call light appropriately, able to make needs known. She is alert and oriented but anxious which is baseline for her. Pt complains of pain throughout shift and medicated as per orders and clinical judgememt. Pt able to move self around in bed independantly. Monitored and care provided by this Rn until handoff given to day RN.
--- NOTE | 2019-02-20 16:45 | NUR ---
TRANSFER NOTE PT ALERT AND ORIENTED. VS STABLE. O2 SATS REMAIN ABOVE 90% ON 6L SIMPLE MASK. HR NSR BEFORE TELEMETRY DISCONTINUED. ORDERS FOR MEDICAL STATUS THIS AM. PT ABLE TO AMBULATE TO BATHROOM WITH SBA. PT COMPLAINS OF PAIN OCCASIONALLY IN HER HIPS. PT REPOSITIONS HERSELF NEEDED AND MEDICATED. REPORT CALLED TO MEDICAL FLOOR RN TO TAKE OVER CARE. PT TAKEN UP BY WHEELCHAIR.
--- NOTE | 2019-02-20 17:07 | NUR ---
PATIENT ARRIVES FROM PCU VIA W/C AT ABOUT 1650. REQUEST COUGH MED. REFUSED TAYA SMITH. DISCUSS MUCINEX HELPING TO THIN OUT SECRETIONS AND POSSIBLY COUGHING MORE, BUT SHOULD HELP IN THE LONG RUN. LUNGS WHEEZEY/TIGHT T/O. .ON SIMPLE MASK AT 6 LPM W/2 EXTENTIONS SO SHE CAN REACH BATHROOM. AWARE NEEDS STOOL SAMPLE AND SPUTUM. SPEAKS IN COMPLETE SENTENCES. IV X 2 PATENT. ALREADY REQUESTING SEROQUEL AND PAIN MEDS. ADVISED WHEN SEROQUEL IS DUE AND WILL BRING IN PAIN MEDS WHEN DUE. COOPERATIVE. BED IN LOW POSITION. ORIENTED TO ROOM. TM.
--- NOTE | 2019-02-21 04:15 | NUR ---
SHIFT SUMMARY- PT. RESTED COMFORTABLY T/O THE NIGHT, NO APPARENT DISTRESS NOTED. WEARING O2 MASK. C/O PAIN X1, PAIN MED GIVEN PER EMAR. PT. ON C-DIFF PRECAUTIONS, HAS NOT HAD BM YET. NO ACUTE CHANGES T/O THE NIGHT. CALL LIGHT WITHIN REACH AND SIDE RAILS UP X2. WILL CONT TO MONITOR.
--- NOTE | 2019-02-21 17:00 | NUR ---
PT UNABLE TO PROVIDE SPUTUM SAMPLE- NON PRODUCTIVE COUGH.
--- NOTE | 2019-02-21 17:39 | NUR ---
SHIFT SUMMARY SLEPT ON AND OFF THROUGHOUT DAY. CALM COOPERATIVE. RHONCHI AND WHEEZES TO UPPER LOBES WITH INTERMITTENT COUGH. UNABLE TO PROVIDE SPUTUM SAMPLE. REMOVED FROM CONTACT PRECAUTIONS DUE TO NO DIARRHEA/BM'S IN PAST 48 HOURS. BOWEL CARE STARTED. CALLS APPROPRIATELY. NEBS PRN. PREFERS MASK FOR OXYGEN ADMINISTRATION.
--- NOTE | 2019-02-22 05:58 | NUR ---
SHIFT SUMMARY NO ACUTE CHANGES TONIGHT. PT REQUIRING 6L VIA MASK, ON CONT PULSE OX. INDEPENDENT IN RM, UP SEVERAL TIMES TONIGHT. MEDICATED TWICE WITH PO PRN OXYCODONE FOR BACK AND HIP PAIN. LS COARSE, WHEEZE, RHONCHI. DYSPNEA WITH MOVEMENT. PT ANXIOUS AT TIMES. REQUESTS SEVERAL DRINKS AND SNACKS THROUGH THE NIGHT. NO OTHER CHANGES TO REPORT. WILL CONT TO MONITOR AND PROVIDE CARE UNTIL PRESUMED BY ONCOMING RN.
--- NOTE | 2019-02-22 17:48 | NUR ---
PT ALERT AND ORIENTED THIS SHIFT. PT INDEPENDENT IN ROOM. PT MEDICATED X1 FOR PAIN IN HIP AND BACK. PT PROVIDED RECLINING CHAIR TO SIT UP OUT OF BED. PT HAS USED HER CALL LIGHT APPROPRIATELY THIS SHIFT. PTS BREATH SOUNDS CONTINUE TO SOUND COARSE AND WHEEZY. PT ON 3L VIA MASK DUE TO INTOLERANCE OF NC. PT CURRENTLY UP IN CHAIR EATING DINNER, CALL LIGHT IN REACH. WILL CONTINUE TO MONITOR.
--- NOTE | 2019-02-23 06:30 | NUR ---
SHIFT SUMMARY NO ACUTE EVENTS OVERNIGHT. CURRENTLY ON 3L VIA MASK, UNABLE TO WEAR NC. O2 SATS >92% T/O NIGHT. LS COARSE WHEEZE, HAS IMPROVED COMPARED TO LAST NIGHT. PT REPORTS RESP DISTRESS HAS IMPROVED WELL. TREATED FOR CHRONIC GENERALIZED PAIN TWICE WITH 5MG PO OXYCODONE. ADMINISTRED PO ATIVAN PRN PER PT REQUEST FOR ANXIETY R/T FINANCIAL ISSUES AT HOME. REQUESTS SNACKS VERY FREQUENTLY, EDUCATED THE PT ON DIET AND WEIGHT LOSS FOR HEALTH. NO OTHER CHANGES TO REPORT. WILL CONT TO MONITOR AND PROVIDE CARE UNTIL PRESUMED BY ONCOMING RN.
--- NOTE | 2019-02-23 18:33 | NUR ---
PT ALERT AN ORIENTED THROUGHOUT THIS SHIFT. PT INDEPENDENT IN ROOM. PT BREATHING EASIER THIS SHIFT. PT LESS WINDED WHEN TRANSFERING TO BEDSIDE CHAIR THAN YESTERDAY. LUNG SOUNDS REMAIN WHEEZY, BUT LACK COARSE SOUNDS OF PREVIOUS SHIFT. PT UP IN CHAIR, CALL LIGHT IN REACH. WILL CONTINUE TO MONITOR.
[2019-02-24 05:23] LABS: Albumin, Blood 3.3 g/dL (3.4-5.0); Anion Gap 7 mmol/L (6-16); Blood Urea Nitrogen 20 mg/dL (8-24); Bun/Creatinine Ratio 33.1 (12.0-20.0); CO2, Blood 33 mmol/L (21-32); Calcium, Blood 8.9 mg/dL (8.5-10.1); Chloride, Blood 96 mmol/L (98-108); Glomerular Filtration Rate >60 (60-); Glucose, Blood 99 mg/dL (70-99); Phosphorus, Blood 3.2 mg/dL (2.5-4.9); Potassium, Blood 4.1 mmol/L (3.5-5.5); Sodium, Blood 136 mmol/L (136-145)
--- NOTE | 2019-02-24 05:50 | NUR ---
SHIFT SUMMARY: 58 Y/O OBESE FEMALE RESTED COMFORTABLY ALL SHIFT, C/O BACK PAIN RATED 6/10 WITH OXYCODONE 5MG PO X 1 TABLET GIVEN WITH RELIEF FELT, PT WAS NOTED TO BE ASKING FOR NUMEROUS DRINKS BY THIS NURSE AND WAS ENCOURAGED TO CURTAIL PO LIQUID INTAKE DUE COPD AND POSSIBLE FLUID OVERLOAD (OTHER CUSTOMER SERVICE ENGINEER ADVISED TO NOT GIVE HER MORE DRINKS) WITH PATIENT IN AGREEMENT, PT HAS MUCH ANXIETY AND IT TIMES VERY OBSESSIVE AND COMPULSIVE WITH THIS BEHAVIOR IT WAS NOTED, ABLE TO AMBULATE BATHROOM AND BACK WITHOUT DIFFICULTY, HAPPY AND COOPERATIVE WITH NURSING STAFF, BED LOW POSITION WITH CALL LIGHT AT SIDE.
--- NOTE | 2019-02-24 19:33 | NUR ---
SHIFT SUMMARY: NO ACUTE CHANGES TO REPORT THOIS SHIFT. PT A&O; ANXIOUS; COOPERATIVE WITH CARE. MEDICATED FOR PAIN & ANXIETY PER EMAR. PT ON 3L O2 VIA NC; PT USES 3L @ HOME; LUNGS WHEEZY; IV STEROIDS CONTINUING; RT FOLLOWING. PT EXPECTED TO TRANSITION TO ORAL STEROIDS 02/25. REPORT GIVEN TO ONCOMING RN.
--- NOTE | 2019-02-25 04:07 | NUR ---
SHIFT SUMMARY PT DESATURATES TO HIGH 80'S% WHEN SHE REMOVES HER O2 MASK. REINFORCING THE NEED TO WEAR HER O2 MASK DOES HELP. WE DID LIMIT HER FREQUENT SNACKING AND DRINKING THIS SHIFT. REINFORCING EDUCATION ABOUT THE POTENTIAL EFFECTS OF THOSE BEHAVIORS ON HER HEALTH SITUATION. SHE DID NOT REQUIRE PAIN OR ANXIETY MEDICATION SO FAR THIS SHIFT. SHE WAS ABLE TO REST COMFORTABLY WITH WARMED BLANKETS. NO REMARKABLE CHANGES THIS SHIFT. I WILL PASS ALONG TO DAY SHIFT THE NEED TO TITRATE O2 DOWN TO WHAT THE PT USES AT HOME, THE PLAN IS TO SWITCH TO ORAL MEDS, TITRATE O2 TO HOME LEVEL, TAPER STEROIDS AND DISCHARGE.
[2019-02-25] MEDS ORDERED: GUAI600T33 PO (12:20)
[2019-02-25] MEDS ORDERED: Prednisone10 MG PO (12:21)
[2019-02-25] MEDS ORDERED: BUDE6HFA INH (12:22)
--- NOTE | 2019-02-25 14:48 | NUR ---
PATIENT DISCHARGE: PATIENT DISCHARGED TO HOME THIS SHIFT. MEDICATION RECONCILIATION COMPLETED; MED LIST FAXED TO [facility]. DISCHARGE EDUCATION COMPLETED WITH PATIENT. PATIENT TRANSPORTED TO EXIT BY WHEELCHAIR AT 1336. PATIENT DEPARED [facility] VIA PRIVATE AUTO.
== END 2019-02-25 13:36 | disposition home or self-care (01) | DRG 189 ==
LOC: ER 08:40 → PCU 11:40 → MEDS 02-20 16:50
PROVIDERS: Emergency Medicine; Internal Medicine; Nurse Practitioner Acute Care; Physician Assistant; ADMIT Internal Medicine
DX: J96.21 Acute and chronic respiratory failure with hypoxia (principal); J44.1 Chronic obstructive pulmonary disease with (acute) exacerbation; J44.0 Chronic obstructive pulmonary disease with (acute) lower respiratory infection; E66.2 Morbid (severe) obesity with alveolar hypoventilation; Z68.42 Body mass index [BMI] 45.0-49.9, adult; J20.8 Acute bronchitis due to other specified organisms; I10 Essential (primary) hypertension; F31.9 Bipolar disorder, unspecified; F20.9 Schizophrenia, unspecified; B18.2 Chronic viral hepatitis C; E11.65 Type 2 diabetes mellitus with hyperglycemia; M79.7 Fibromyalgia; D69.6 Thrombocytopenia, unspecified; Z99.81 Dependence on supplemental oxygen; J11.1 Influenza due to unidentified influenza virus with other respiratory manifestations; F17.210 Nicotine dependence, cigarettes, uncomplicated; G89.4 Chronic pain syndrome; F41.0 Panic disorder [episodic paroxysmal anxiety]
CPT/HCPCS: 0099U; 36415; 71046; 80053; 80069; 84145; 84484; 85025; 87070; 87205; 87804; 93005; 93010; 94640; 94644; 94660; 94762; 96374; 99285-25; A9270; J0456; J1650; J2920; J2930; J7030; J7050; J7512; J7605

== ENCOUNTER 2019-03-25 10:18 | Emergency (ER) | payer OTHER ==
[~2019-03-25] VITALS: Ht 162.6 cm; Wt 127.0 kg
[~2019-03-25 10:18] MED LIST changes: +BUDE6HFA INH; +BUSP10 PO; +CLON.5 PO; +GUAI600T33 PO; +Prednisone10 MG PO; +QUET200 PO; -QUET25 PO
[2019-03-25 11:09] LABS: BASOPHILS ABSOLUTE AUTO 0.03 K/mm3 (0.00-0.23); BASOPHILS PERCENT AUTO 0 % (0-2); EOSINOPHILS ABSOLUTE AUTO 0.07 K/mm3 (0.00-0.68); EOSINOPHILS PERCENT AUTO 1 % (0-6); Hematocrit 47.1 % (33.0-51.0); IMMATURE GRAN ABSOLUTE AUTO 0.03 K/mm3 (0.00-0.10); IMMATURE GRAN PERCENT AUTO 0 % (0-1); LYMPHOCYTES PERCENT AUTO 25 % (21-46); MONOCYTES ABSOLUTE AUTO 0.92 K/mm3 (0.16-1.47); MONOCYTES PERCENT AUTO 8 % (4-13); Mean Corpuscular HGB 30.2 pg (26.0-34.0); Mean Corpuscular HGB Conc 31.8 g/dL (31.5-36.5); Mean Corpuscular Volume 95 fL (80-100); Mean Platelet Volume 10.4 fL (9.1-12.4); NEUTROPHILS ABSOLUTE AUTO 7.14 K/mm3 (1.96-9.15); NEUTROPHILS PERCENT AUTO 66 % (41-73); Platelet Count 170 K/mm3 (150-400); RDW Coefficient Variation 13.1 % (11.7-14.2); Red Blood Cell Count 4.96 M/mm3 (3.80-5.20); White Blood Cell Count 10.89 K/mm3 (4.00-11.30)
[2019-03-25 11:29] LABS: Alanine Aminotransfer (ALT/SGP 25 U/L (12-78); Albumin, Blood 3.7 g/dL (3.4-5.0); Albumin/Globulin Ratio 0.9 (0.8-1.8); Alk Phos 91 U/L (50-136); Anion Gap 6 mmol/L (6-16); Aspartate Aminotrans (AST/SGOT 22 U/L (12-37); Bilirubin, Total 0.3 mg/dL (0.1-1.0); Blood Urea Nitrogen 15 mg/dL (8-24); Bun/Creatinine Ratio 27.9 (12.0-20.0); CO2, Blood 31 mmol/L (21-32); Chloride, Blood 101 mmol/L (98-108); Creatinine, Blood 0.54 mg/dL (0.40-1.00); Globulin, Blood 4.3 g/dL (2.2-4.0); Glomerular Filtration Rate >60 (60-); Glucose, Blood 124 mg/dL (70-99); Potassium, Blood 3.8 mmol/L (3.5-5.5); Sodium, Blood 138 mmol/L (136-145); Troponin I <0.015 ng/mL (0.000-0.040)
== END 2019-03-25 14:35 | disposition home or self-care (01) ==
LOC: ER 10:18
PROVIDERS: Physician Assistant
DX: R20.2 Paresthesia of skin (principal); I10 Essential (primary) hypertension; J44.9 Chronic obstructive pulmonary disease, unspecified; F31.9 Bipolar disorder, unspecified; G47.33 Obstructive sleep apnea (adult) (pediatric); F17.200 Nicotine dependence, unspecified, uncomplicated; Z88.1 Allergy status to other antibiotic agents; Z79.899 Other long term (current) drug therapy; Z79.52 Long term (current) use of systemic steroids
CPT/HCPCS: 36415; 71046; 80053; 84484; 85025; 93005; 93010; 99284-25

== ENCOUNTER 2019-04-26 19:43 | Inpatient (IN) | payer OTHER ==
[~2019-04-26] VITALS: Ht 162.6 cm; Wt 143.5 kg
[2019-04-26 20:21] LABS: BASOPHILS ABSOLUTE AUTO 0.04 K/mm3 (0.00-0.23); BASOPHILS PERCENT AUTO 0 % (0-2); EOSINOPHILS ABSOLUTE AUTO 0.07 K/mm3 (0.00-0.68); EOSINOPHILS PERCENT AUTO 1 % (0-6); Hematocrit 43.4 % (33.0-51.0); Hemoglobin 13.5 g/dL (11.5-16.0); IMMATURE GRAN ABSOLUTE AUTO 0.03 K/mm3 (0.00-0.10); IMMATURE GRAN PERCENT AUTO 0 % (0-1); LYMPHOCYTES ABSOLUTE AUTO 1.42 K/mm3 (0.84-5.20); LYMPHOCYTES PERCENT AUTO 14 % (21-46); MONOCYTES ABSOLUTE AUTO 1.36 K/mm3 (0.16-1.47); MONOCYTES PERCENT AUTO 13 % (4-13); Mean Corpuscular HGB 30.2 pg (26.0-34.0); Mean Corpuscular HGB Conc 31.1 g/dL (31.5-36.5); Mean Corpuscular Volume 97 fL (80-100); Mean Platelet Volume 10.8 fL (9.1-12.4); NEUTROPHILS ABSOLUTE AUTO 7.31 K/mm3 (1.96-9.15); NEUTROPHILS PERCENT AUTO 71 % (41-73); Platelet Count 116 K/mm3 (150-400); RDW Coefficient Variation 13.3 % (11.7-14.2); RDW Standard Deviation 48.2 fL (35.1-46.3); Red Blood Cell Count 4.47 M/mm3 (3.80-5.20); White Blood Cell Count 10.23 K/mm3 (4.00-11.30)
[2019-04-26 20:39] LABS: Alanine Aminotransfer (ALT/SGP 24 U/L (12-78); Albumin, Blood 3.5 g/dL (3.4-5.0); Albumin/Globulin Ratio 0.9 (0.8-1.8); Alk Phos 100 U/L (50-136); Anion Gap 4 mmol/L (6-16); Aspartate Aminotrans (AST/SGOT 19 U/L (12-37); Bilirubin, Total 0.2 mg/dL (0.1-1.0); Blood Urea Nitrogen 13 mg/dL (8-24); CO2, Blood 34 mmol/L (21-32); Calcium, Blood 8.8 mg/dL (8.5-10.1); Chloride, Blood 103 mmol/L (98-108); Creatinine, Blood 0.54 mg/dL (0.40-1.00); Glomerular Filtration Rate >60 (60-); Glucose, Blood 137 mg/dL (70-99); Potassium, Blood 4.2 mmol/L (3.5-5.5); Sodium, Blood 141 mmol/L (136-145); Total Protein, Blood 7.5 g/dL (6.4-8.2); Troponin I <0.015 ng/mL (0.000-0.040)
[2019-04-26] MEDS ORDERED: OLAN10 PO (21:31)
[2019-04-26] MEDS ORDERED: AMLODIPINE BES2.5 MG PO (21:31)
[2019-04-26] MEDS ORDERED: Lamictal150 MG PO (21:32)
[2019-04-26] MEDS ORDERED: METF500 PO (21:32)
[2019-04-26] MEDS ORDERED: METFORMIN HCL500 M2 PO (21:32)
[2019-04-26] MEDS ORDERED: B-121000 MC3 PO (21:33)
[2019-04-26] MEDS ORDERED: NEURONTIN300 MG PO (21:35)
[2019-04-26] MEDS ORDERED: GABA300 PO (21:36)
[2019-04-26] MEDS ORDERED: OXYC5 PO (21:36)
[2019-04-26] MEDS ORDERED: TRAZ150T57 PO (21:36)
[2019-04-26] MEDS ORDERED: Buspirone HCl30 MG PO (21:37)
[2019-04-26] MEDS ORDERED: VRAYLAR1.5 MG PO (21:37)
[2019-04-26] MEDS ORDERED: Robaxin750 MG PO (21:39)
[2019-04-26] MEDS ORDERED: Mobic15 MG PO (21:40)
[2019-04-27] MEDS ORDERED: GABA300 PO (00:02)
[2019-04-27] MEDS ORDERED: QUET200 PO (00:05)
[2019-04-27 01:45] LABS: Adenovirus Not Detected (NOT DETECT); Bordetella pertussis Not Detected (NOT DETECT); Chlamydophila pneumoniae Not Detected (NOT DETECT); Coronavirus 229E Not Detected (NOT DETECT); Coronavirus HKU1 Not Detected (NOT DETECT); Coronavirus NL63 Not Detected (NOT DETECT); Coronavirus OC43 Not Detected (NOT DETECT); Human Metapneumovirus Not Detected (NOT DETECT); Human Rhinovirus/Enterovirus Detected (NOT DETECT); Influenza A Not Detected (NOT DETECT); Influenza A/2009-H1 Not Detected (NOT DETECT); Influenza A/H1 Not Detected (NOT DETECT); Influenza A/H3 Not Detected (NOT DETECT); Influenza B Not Detected (NOT DETECT); Mycoplasma pneumoniae Not Detected (NOT DETECT); Parainfluenza Virus 1 Not Detected (NOT DETECT); Parainfluenza Virus 2 Not Detected (NOT DETECT); Parainfluenza Virus 3 Not Detected (NOT DETECT); Parainfluenza Virus 4 Not Detected (NOT DETECT); Respiratory Syncytial Virus Not Detected (NOT DETECT)
--- NOTE | 2019-04-27 02:30 | NUR ---
ADMIT NOTE PATIENT ADMITTED FROM THE ER AND WAS ABLE TO TRANSFER SELF FROM THE BED TO THE [facility]. PATIENT ON BIPAP FOR EASE OF BREATHING PRN. PATIENT ON 3L VIA N/C WHICH IS HER HOME DOSE WHEN OFF BIPAP. PATIENT PLEASENT AND COOPERATIVE. SHORTNESS OF BREATH NOTED WITH ACTIVITY. KANWAL PRACTIONER FAVIOLA AWARE OF D-DIMER RESLUTS. NO NEW ORDER RECIEVED.
[2019-04-27 04:45] LABS: BASOPHILS ABSOLUTE AUTO 0.01 K/mm3 (0.00-0.23); BASOPHILS PERCENT AUTO 0 % (0-2); EOSINOPHILS PERCENT AUTO 0 % (0-6); Hematocrit 45.4 % (33.0-51.0); Hemoglobin 13.8 g/dL (11.5-16.0); IMMATURE GRAN ABSOLUTE AUTO 0.05 K/mm3 (0.00-0.10); IMMATURE GRAN PERCENT AUTO 1 % (0-1); LYMPHOCYTES ABSOLUTE AUTO 0.59 K/mm3 (0.84-5.20); LYMPHOCYTES PERCENT AUTO 7 % (21-46); MONOCYTES ABSOLUTE AUTO 0.17 K/mm3 (0.16-1.47); MONOCYTES PERCENT AUTO 2 % (4-13); Mean Corpuscular HGB 29.6 pg (26.0-34.0); Mean Corpuscular HGB Conc 30.4 g/dL (31.5-36.5); Mean Corpuscular Volume 97 fL (80-100); NEUTROPHILS ABSOLUTE AUTO 7.66 K/mm3 (1.96-9.15); NEUTROPHILS PERCENT AUTO 90 % (41-73); Platelet Count 118 K/mm3 (150-400); RDW Coefficient Variation 13.4 % (11.7-14.2); RDW Standard Deviation 48.1 fL (35.1-46.3); Red Blood Cell Count 4.67 M/mm3 (3.80-5.20); White Blood Cell Count 8.48 K/mm3 (4.00-11.30)
[2019-04-27 05:05] LABS: Anion Gap 4 mmol/L (6-16); Blood Urea Nitrogen 11 mg/dL (8-24); CO2, Blood 31 mmol/L (21-32); Calcium, Blood 9.3 mg/dL (8.5-10.1); Chloride, Blood 103 mmol/L (98-108); Glomerular Filtration Rate >60 (60-); Glucose, Blood 164 mg/dL (70-99); Sodium, Blood 138 mmol/L (136-145)
--- NOTE | 2019-04-27 07:55 | NUR ---
SHIFT SUMMARY PATIENT PLEASENT THROUGHOUT THE NIGHT. PATIENT USED HER BIPAP FOR MOST OF THE NIGHT AND WAS ON 3L VIA N/C WHEN OFF BIPAP. PATIENT APPEARED TO SLEEP WELL LAST NIGHT. VITAL SIGNS CHARTED. CONTINUOUS BIOX IN PLACE. REPORT GIVEN TO ONCOMING RN.
--- NOTE | 2019-04-27 10:07 | NUR ---
Assumed care Assumed care of pt at approx 0715. Pt self managing between BIPAP and NC at 3L. Pt with accessary muscle use, tachypnea, BASSETT, and only speaking with short sentences. Pt states "I feel so much better". VSS. Alert and oriented. Able to make needs known. Able to shift self in bed as needed. Pt anxious at baseline, impulsive at times, and urgency with needs. Pt calls repeatedly for medications. Pt is redirectable, cooperative with care, appreciative of staff. Pt able to take all pills whole with water, eating 100% of meals. Pt requesting Nystatin powder and cough syrup. Will ask Provider when she rounds on pt. Pt with mild chest muscle soreness from prolonged accessary muscle use. BIPAP encouraged. No acute concerns at this time.
--- NOTE | 2019-04-27 10:29 | NUR ---
Pt overall, alert and oriented, with some mild confusion at times. With prompting can recall information accurately. Will continue to monitor mentation closely.
[2019-04-27] MEDS ORDERED: CLON1 PO (14:32)
--- NOTE | 2019-04-27 14:48 | NUR ---
Pt with significant anxiety especially associated with coughing episodes. Pt up to bathroom with moderate BASSETT. Pt requiring BIPAP placement but also experiences episodes of coughing and anxiety. Provider called for anxiety and cough medications. Waiting for orders, no new orders recieved at this time. RT called for treatment d/t increased wheezing heard on auscultation by this RN. RT in room at this time. Calling provider for orders again at this time. Will continue to monitor and update once orders have been placed by provider.
--- NOTE | 2019-04-27 17:34 | NUR ---
SHIFT SUMMARY Pt with no acute changes this shift. Alert and oriented, able to make needs known with call light, follows directions. Pt with mild confusion this morning, no confusion this afternoon. Pt with episodes of coughing which triggers anxiety and SOB. Medicating per emar for anxiety and cough suppression as encouraging self soothing techniques such as slow breathing and distractions. Pt cooperative and calm with care. Pt appreciative of staff. Pt self managing BIPAP and NC placement. Between 3-4L NC this shift, baseline is 3L. Bipap at 12/7 at 30%; unchanged. Lungs remains coarse with and end expriatory wheeze noted in all lobes, PRN neb tx utilized this shift. Pt able to ambulate to bathroom with no assistance. No acute declines, no changes from initial shift assessment.
--- NOTE | 2019-04-27 21:05 | NUR ---
a+o, anxious r/treatment, cough, condition, but very aware of current course of treatment, talked about medications/pain, gave meds as prescribed and appropriate, frequent request for medications not yet available, using non pharmalogical interventions for pain, using cpap and nc prn, productive/painful cough treated as prescribed, resting in bed watching tv, drinking water, applied powder to reddened area, saline locked, 4L via nc home dose 3L, sustaining around 90%, will continue to monior and treat
[2019-04-28 04:27] LABS: Hematocrit 45.1 % (33.0-51.0); Hemoglobin 13.8 g/dL (11.5-16.0); Mean Corpuscular HGB 29.8 pg (26.0-34.0); Mean Corpuscular HGB Conc 30.6 g/dL (31.5-36.5); Mean Corpuscular Volume 97 fL (80-100); Mean Platelet Volume 11.3 fL (9.1-12.4); Platelet Count 125 K/mm3 (150-400); RDW Coefficient Variation 13.3 % (11.7-14.2); RDW Standard Deviation 47.7 fL (35.1-46.3); Red Blood Cell Count 4.63 M/mm3 (3.80-5.20); White Blood Cell Count 12.45 K/mm3 (4.00-11.30)
[2019-04-28 04:39] LABS: Albumin, Blood 3.5 g/dL (3.4-5.0); Anion Gap 4 mmol/L (6-16); Blood Urea Nitrogen 19 mg/dL (8-24); Bun/Creatinine Ratio 33.2 (12.0-20.0); CO2, Blood 32 mmol/L (21-32); Calcium, Blood 9.3 mg/dL (8.5-10.1); Chloride, Blood 101 mmol/L (98-108); Creatinine, Blood 0.57 mg/dL (0.40-1.00); Glomerular Filtration Rate >60 (60-); Glucose, Blood 179 mg/dL (70-99); Phosphorus, Blood 3.1 mg/dL (2.5-4.9); Potassium, Blood 4.7 mmol/L (3.5-5.5); Sodium, Blood 137 mmol/L (136-145)
--- NOTE | 2019-04-28 06:40 | NUR ---
remains a+o, saline locked, o2 still at 4l when on NC still going back and forth btwn bipap and nc, asking for medication to reduce the effect of the steroid, states she is eating to much, and feeling like crawling out of her skin, medicated as prescribed for pain and anxiety, up to bsc with assist due to hoses and cords, will continue to monitor and treat until share bsr with returning staff and pt
--- NOTE | 2019-04-28 19:28 | NUR ---
Shift Summary No acute changes this shift. Pt with improved anxiety. VSS. Breathing remains labored on 4L NC. Pt able to express needs. Calm and cooperative with care. No changes or events on tele. Pt with no acute changes from intial shift assessment. No major progress to note besides anxiety improving. No acute declines. pt is stable on feet and able ambulate safely in room independatly. No acute concerns.
--- NOTE | 2019-04-29 01:22 | NUR ---
GRAM + COCCI BLOOD result called in, called , ordered vanco 02/11 to be managed by pharm, entered order, called pharmacy, started vanco and ns, will continue to monitor and treat, wrote blood culture results out for pt in an attempt to explain to her why the need for abx, assisted to bsc due to iv and bipap, got water and a banana for snack to help control diet
[2019-04-29 04:32] LABS: Hematocrit 44.5 % (33.0-51.0); Hemoglobin 13.7 g/dL (11.5-16.0); Mean Corpuscular HGB 30.2 pg (26.0-34.0); Mean Corpuscular HGB Conc 30.8 g/dL (31.5-36.5); Mean Corpuscular Volume 98 fL (80-100); RDW Coefficient Variation 13.5 % (11.7-14.2); RDW Standard Deviation 49.2 fL (35.1-46.3); Red Blood Cell Count 4.54 M/mm3 (3.80-5.20); White Blood Cell Count 11.19 K/mm3 (4.00-11.30)
[2019-04-29 04:37] LABS: Platelet Count 136 K/mm3 (150-400)
--- NOTE | 2019-04-29 12:08 | NUR ---
REASSESSMENT: PT HAS BEEN RESTING IN BED FOR MOST OF THE MORNING. SHE IS GETTING UP TO THE COMMODE AND VOIDING INDEPENDENTLY. SHE GETS A LITTLE DYSPNEIC WITH ACTIVITY BUT HASN'T REQUIRED AN INCREASE IN OXYGEN WITH ACTIVITY AND RECOVERS QUICKLY ONCE SHE RESTS. LUNGS CONTINUE TO HAVE EXPIRATORY WHEEZES. SR, BP STABLE, AFEBRILE, SEE VITALS. FREQUENT EXPLANATIONS OF MEDICATIONS AND DISEASE PROCESS. PT VERBALIZES UNDERSTANDING WHEN STAFF IS IN THE ROOM, BUT THEN SHE WILL ASK THE NEXT PERSON THAT COMES IN THE EXACT SAME QUESTIONS, EVEN IF IT IS THE SAME PERSON. CONTINUING TO REINFORCE EDUCATION.
--- NOTE | 2019-04-29 16:54 | NUR ---
SHIFT SUMMARY: PT HAS BEEN RESTING IN BED THROUGHOUT THE DAY. SHE REMAINS ALERT AND ORIENTED. SHE IS ON 4L/NC, LUNGS CONTINUE TO HAVE EXPIRATORY WHEEZES. SHE HAS A HARSH, HACKING COUGH THAT PRODUCES SM AMT OF THICK YELLOW SPUTUM. SR TO ST IN LOW 100S, BP STABLE, SEE VITALS. PT IS EATING A LOT. SHE COMPLAINS OF CONSTANTLY BEING STARVING DESPITE CONSTANTLY EATING. EDUCATED PT ON SIDE EFFECTS OF STEROIDS AND ADVISED HER ON DIET CONTROL EVEN THOUGH SHE IS FEELING SO HUNGRY. PT IS GETING UP TO VOID INDEPENTENTLY. CONTINUING TO MONITOR.
--- NOTE | 2019-04-30 04:41 | NUR ---
SHIFT SUMMARY: PATIENT ASKING/EATING FOOD APPROX EVERY 30 TO 60 MINUTES, PATIENT EDUCATED BY STAFF ABOUT BLOOD SUGARS AND PATIENT BECAME AGGITATED STATING STAFF IS 'STARVING HER'. PATIENT HAS GAINED APPROX 11LB SINCE ADMIT. PATIENT REDIRECTABLE FOR ALL OTHER ISSUES EXCEPT FOOD/SNACKS. NO OTHER ISSUES NOTED. PATIENT NOT STEADY ON HER FEET THIS SHIFT, BED ALARM TURNED ON. CALL LIGHT WITHIN REACH, BED LOW AND LOCKED, VSS.
[2019-04-30] MEDS ORDERED: Pedi-Dri 100,0060 GM (11:44)
[2019-04-30] MEDS ORDERED: TESSALON PERLE100 MG PO (11:44)
[2019-04-30] MEDS ORDERED: Pedi-Dri 100,0060 GM TOP (11:45)
[2019-04-30] MEDS ORDERED: Prednisone10 MG PO (11:53)
== END 2019-04-30 12:10 | disposition home or self-care (01) | DRG 189 ==
LOC: ER 19:43 → PCU 21:48
PROVIDERS: Emergency Medicine; Internal Medicine; Nurse Practitioner Acute Care; ADMIT Internal Medicine
PROC: 5A09457 Assistance with Respiratory Ventilation, 24-96 Consecutive Hours, Continuous Positive Airway Pressure (ICD-10-PCS; principal; 2019-04-27)
DX: J96.21 Acute and chronic respiratory failure with hypoxia (principal); J44.1 Chronic obstructive pulmonary disease with (acute) exacerbation; F31.89 Other bipolar disorder; Z68.42 Body mass index [BMI] 45.0-49.9, adult; J06.9 Acute upper respiratory infection, unspecified; F31.9 Bipolar disorder, unspecified; M79.7 Fibromyalgia; K21.9 Gastro-esophageal reflux disease without esophagitis; Z99.81 Dependence on supplemental oxygen; B19.20 Unspecified viral hepatitis C without hepatic coma; I10 Essential (primary) hypertension; T38.0X5A Adverse effect of glucocorticoids and synthetic analogues, initial encounter; G47.33 Obstructive sleep apnea (adult) (pediatric); B34.8 Other viral infections of unspecified site; B34.1 Enterovirus infection, unspecified; F17.210 Nicotine dependence, cigarettes, uncomplicated
CPT/HCPCS: 0099U; 36415; 71045; 80048; 80053; 80069; 82947; 83605; 83880; 84145; 84484; 85025; 85027; 85379; 87040; 90670; 93005; 93010; 94640; 94644; 94660; 94760; 94762; 96365; 99285-25; A9270; G0378; J0456; J1650; J2930; J3370; J7050; J7512

== ENCOUNTER 2019-05-14 21:28 | Inpatient (IN) | payer OTHER ==
[~2019-05-14] VITALS: Ht 160 cm; Wt 141.4 kg
[~2019-05-14 21:28] MED LIST changes: +AMLODIPINE BES2.5 MG PO; +B-121000 MC3 PO; +Buspirone HCl30 MG PO; +CLON1 PO; +GABA300 PO; +Lamictal150 MG PO; +METFORMIN HCL500 M2 PO; +Mobic15 MG PO; +NEURONTIN300 MG PO; +Pedi-Dri 100,0060 GM; +Pedi-Dri 100,0060 GM TOP; +Robaxin750 MG PO; +TESSALON PERLE100 MG PO; +VRAYLAR1.5 MG PO
[2019-05-14 21:55] LABS: BASOPHILS ABSOLUTE AUTO 0.02 K/mm3 (0.00-0.23); BASOPHILS PERCENT AUTO 0 % (0-2); EOSINOPHILS ABSOLUTE AUTO 0.05 K/mm3 (0.00-0.68); EOSINOPHILS PERCENT AUTO 1 % (0-6); Hematocrit 41.5 % (33.0-51.0); Hemoglobin 12.7 g/dL (11.5-16.0); IMMATURE GRAN ABSOLUTE AUTO 0.04 K/mm3 (0.00-0.10); IMMATURE GRAN PERCENT AUTO 0 % (0-1); LYMPHOCYTES ABSOLUTE AUTO 1.65 K/mm3 (0.84-5.20); LYMPHOCYTES PERCENT AUTO 17 % (21-46); MONOCYTES ABSOLUTE AUTO 1.27 K/mm3 (0.16-1.47); MONOCYTES PERCENT AUTO 13 % (4-13); Mean Corpuscular HGB 29.7 pg (26.0-34.0); Mean Corpuscular HGB Conc 30.6 g/dL (31.5-36.5); Mean Corpuscular Volume 97 fL (80-100); Mean Platelet Volume 10.5 fL (9.1-12.4); NEUTROPHILS ABSOLUTE AUTO 6.52 K/mm3 (1.96-9.15); NEUTROPHILS PERCENT AUTO 68 % (41-73); Platelet Count 116 K/mm3 (150-400); RDW Coefficient Variation 14.5 % (11.7-14.2); RDW Standard Deviation 51.1 fL (35.1-46.3); Red Blood Cell Count 4.27 M/mm3 (3.80-5.20); White Blood Cell Count 9.55 K/mm3 (4.00-11.30)
[2019-05-14 22:12] LABS: Alanine Aminotransfer (ALT/SGP 34 U/L (12-78); Albumin, Blood 3.3 g/dL (3.4-5.0); Albumin/Globulin Ratio 0.8 (0.8-1.8); Alk Phos 93 U/L (50-136); Anion Gap 3 mmol/L (6-16); Aspartate Aminotrans (AST/SGOT 23 U/L (12-37); Bilirubin, Total 0.3 mg/dL (0.1-1.0); Blood Urea Nitrogen 9 mg/dL (8-24); CO2, Blood 37 mmol/L (21-32); Calcium, Blood 9.1 mg/dL (8.5-10.1); Chloride, Blood 99 mmol/L (98-108); Creatinine, Blood 0.53 mg/dL (0.40-1.00); Glomerular Filtration Rate >60 (60-); Glucose, Blood 117 mg/dL (70-99); Potassium, Blood 3.8 mmol/L (3.5-5.5); Sodium, Blood 139 mmol/L (136-145); Total Protein, Blood 7.3 g/dL (6.4-8.2); Troponin I <0.015 ng/mL (0.000-0.040)
[2019-05-14 22:36] LABS: Base Excess Venous 11.9 mmol/L; Bicarbonate Venous 33.3 mmol/L (24.0-30.0); PCO2 Venous 64.6 mmHg (38-42); PO2 Venous 105 mmHg (38-42); pH Blood Venous 7.37 (7.34-7.37)
[2019-05-15 04:55] LABS: Source, Urine Clean Catch
[2019-05-15 04:59] LABS: Bilirubin, Urine Neg (Neg); Blood, Urine Neg (Neg); Glucose Qualitative, Urine Neg (Neg); Ketones, Urine Neg (Neg); Leukocyte Esterase, Urine Neg (Neg); Nitrite, Urine Neg (Neg); Protein, Urine Neg (Neg); Urobilinogen, Urine NORM (Normal); pH, Urine 6.5 (5.0-8.0)
[2019-05-15 05:01] LABS: Appearance, Urine Clear (Clear); Color, Urine Yellow (P-Yellow)
[2019-05-15 05:15] LABS: U Amphetamine Screen Not Detected; U Barbituate Screen Not Detected; U Benzodiazapine Screen Not Detected; U Methamphetamine Screen Not Detected
[2019-05-15 05:16] LABS: U Buprenorphine Screen Not Detected; U Cannabinoids Screen Not Detected; U Cocaine Screen Not Detected; U Methadone Screen Not Detected; U Opiates Screen Not Detected; U Oxycodone Screen Not Detected; U Phencyclidine Screen Not Detected; U Propoxyphene Screen Not Detected
[2019-05-15 07:34] LABS: Adenovirus Not Detected (NOT DETECT); Bordetella pertussis Not Detected (NOT DETECT); Chlamydophila pneumoniae Not Detected (NOT DETECT); Coronavirus 229E Not Detected (NOT DETECT); Coronavirus HKU1 Not Detected (NOT DETECT); Coronavirus NL63 Not Detected (NOT DETECT); Coronavirus OC43 Not Detected (NOT DETECT); Human Metapneumovirus Not Detected (NOT DETECT); Human Rhinovirus/Enterovirus Not Detected (NOT DETECT); Influenza A Not Detected (NOT DETECT); Influenza A/2009-H1 Not Detected (NOT DETECT); Influenza A/H1 Not Detected (NOT DETECT); Influenza A/H3 Not Detected (NOT DETECT); Influenza B Not Detected (NOT DETECT); Mycoplasma pneumoniae Not Detected (NOT DETECT); Parainfluenza Virus 1 Not Detected (NOT DETECT); Parainfluenza Virus 2 Not Detected (NOT DETECT); Parainfluenza Virus 3 Not Detected (NOT DETECT); Parainfluenza Virus 4 Not Detected (NOT DETECT); Respiratory Syncytial Virus Not Detected (NOT DETECT)
[2019-05-15 10:23] LABS: Hematocrit 41.6 % (33.0-51.0); Hemoglobin 12.7 g/dL (11.5-16.0); Mean Corpuscular HGB 29.9 pg (26.0-34.0); Mean Corpuscular HGB Conc 30.5 g/dL (31.5-36.5); Mean Corpuscular Volume 98 fL (80-100); Mean Platelet Volume 10.6 fL (9.1-12.4); Platelet Count 114 K/mm3 (150-400); RDW Coefficient Variation 14.4 % (11.7-14.2); RDW Standard Deviation 51.6 fL (35.1-46.3); Red Blood Cell Count 4.25 M/mm3 (3.80-5.20); White Blood Cell Count 7.32 K/mm3 (4.00-11.30)
[2019-05-15 10:34] LABS: Alanine Aminotransfer (ALT/SGP 32 U/L (12-78); Albumin, Blood 3.3 g/dL (3.4-5.0); Albumin/Globulin Ratio 0.8 (0.8-1.8); Alk Phos 89 U/L (50-136); Anion Gap 6 mmol/L (6-16); Aspartate Aminotrans (AST/SGOT 21 U/L (12-37); Bilirubin, Total 0.3 mg/dL (0.1-1.0); Blood Urea Nitrogen 9 mg/dL (8-24); Bun/Creatinine Ratio 16.3 (12.0-20.0); CO2, Blood 34 mmol/L (21-32); Calcium, Blood 8.8 mg/dL (8.5-10.1); Chloride, Blood 101 mmol/L (98-108); Creatinine, Blood 0.55 mg/dL (0.40-1.00); Globulin, Blood 4.1 g/dL (2.2-4.0); Glomerular Filtration Rate >60 (60-); Glucose, Blood 174 mg/dL (70-99); Potassium, Blood 4.3 mmol/L (3.5-5.5); Sodium, Blood 141 mmol/L (136-145); Total Protein, Blood 7.4 g/dL (6.4-8.2)
[2019-05-16 04:10] LABS: BASOPHILS ABSOLUTE AUTO 0.01 K/mm3 (0.00-0.23); BASOPHILS PERCENT AUTO 0 % (0-2); EOSINOPHILS PERCENT AUTO 0 % (0-6); Hemoglobin 12.1 g/dL (11.5-16.0); IMMATURE GRAN ABSOLUTE AUTO 0.04 K/mm3 (0.00-0.10); IMMATURE GRAN PERCENT AUTO 0 % (0-1); LYMPHOCYTES ABSOLUTE AUTO 0.65 K/mm3 (0.84-5.20); LYMPHOCYTES PERCENT AUTO 6 % (21-46); MONOCYTES PERCENT AUTO 7 % (4-13); Mean Corpuscular HGB 29.4 pg (26.0-34.0); Mean Corpuscular HGB Conc 29.5 g/dL (31.5-36.5); Mean Corpuscular Volume 100 fL (80-100); Mean Platelet Volume 11.1 fL (9.1-12.4); NEUTROPHILS ABSOLUTE AUTO 8.68 K/mm3 (1.96-9.15); NEUTROPHILS PERCENT AUTO 86 % (41-73); Platelet Count 116 K/mm3 (150-400); RDW Coefficient Variation 14.6 % (11.7-14.2); RDW Standard Deviation 52.3 fL (35.1-46.3); Red Blood Cell Count 4.11 M/mm3 (3.80-5.20); White Blood Cell Count 10.08 K/mm3 (4.00-11.30)
[2019-05-16 04:37] LABS: Alanine Aminotransfer (ALT/SGP 29 U/L (12-78); Albumin, Blood 3.3 g/dL (3.4-5.0); Albumin/Globulin Ratio 0.8 (0.8-1.8); Alk Phos 88 U/L (50-136); Anion Gap 5 mmol/L (6-16); Aspartate Aminotrans (AST/SGOT 15 U/L (12-37); Bilirubin, Total 0.3 mg/dL (0.1-1.0); Blood Urea Nitrogen 18 mg/dL (8-24); Bun/Creatinine Ratio 32.4 (12.0-20.0); CO2, Blood 34 mmol/L (21-32); Calcium, Blood 8.9 mg/dL (8.5-10.1); Chloride, Blood 99 mmol/L (98-108); Creatinine, Blood 0.56 mg/dL (0.40-1.00); Globulin, Blood 4.2 g/dL (2.2-4.0); Glomerular Filtration Rate >60 (60-); Glucose, Blood 178 mg/dL (70-99); Potassium, Blood 4.5 mmol/L (3.5-5.5); Sodium, Blood 138 mmol/L (136-145); Total Protein, Blood 7.5 g/dL (6.4-8.2)
[2019-05-16] MEDS ORDERED: GUAI600T33 PO (10:52)
[2019-05-16] MEDS ORDERED: PRED20 PO (10:53)
[2019-05-17] MEDS ORDERED: Adipex-P37.5 MG PO (23:54)
[2019-05-17] MEDS ORDERED: VRAYLAR1.5 MG PO (23:54)
[2019-05-17] MEDS ORDERED: MELO7.5 PO (23:55)
[2019-05-17] MEDS ORDERED: BACL20 PO (23:57)
[2019-05-17] MEDS ORDERED: INGREZZA80 MG PO (23:58)
[2019-05-17] MEDS ORDERED: Zantac150 MG PO (23:58)
== END 2019-05-16 11:15 | disposition home or self-care (01) | DRG 189 ==
LOC: ER 21:28 → PCU 23:56 → ER 23:56 → PCU 05-15 00:27
PROVIDERS: Emergency Medicine; Internal Medicine; Physician Assistant; ADMIT Internal Medicine
PROC: 5A09357 Assistance with Respiratory Ventilation, Less than 24 Consecutive Hours, Continuous Positive Airway Pressure (ICD-10-PCS; principal; 2019-05-15)
DX: J96.22 Acute and chronic respiratory failure with hypercapnia (principal); J44.1 Chronic obstructive pulmonary disease with (acute) exacerbation; Z68.43 Body mass index [BMI] 50.0-59.9, adult; Z99.81 Dependence on supplemental oxygen; J96.21 Acute and chronic respiratory failure with hypoxia; F31.9 Bipolar disorder, unspecified; M79.7 Fibromyalgia; F20.9 Schizophrenia, unspecified; K21.9 Gastro-esophageal reflux disease without esophagitis; I10 Essential (primary) hypertension; F17.210 Nicotine dependence, cigarettes, uncomplicated; B19.20 Unspecified viral hepatitis C without hepatic coma; E66.01 Morbid (severe) obesity due to excess calories
CPT/HCPCS: 0099U; 36415; 71046; 80053; 81003; 82803; 82947; 83735; 84484; 85025; 85027; 87070; 87147; 87205; 93005; 93010; 94640; 94644; 94660; 94762; 99285-25; A9270-GY; J1650; J2930

== ENCOUNTER 2019-05-17 23:40 | Inpatient (IN) | payer OTHER ==
[~2019-05-17] VITALS: Ht 162.6 cm; Wt 136.1 kg
[2019-05-17] MEDS ORDERED: Adipex-P37.5 MG PO (23:54)
[2019-05-17] MEDS ORDERED: VRAYLAR1.5 MG PO (23:54)
[2019-05-17] MEDS ORDERED: MELO7.5 PO (23:55)
[2019-05-17] MEDS ORDERED: BACL20 PO (23:57)
[2019-05-17] MEDS ORDERED: INGREZZA80 MG PO (23:58)
[2019-05-17] MEDS ORDERED: Zantac150 MG PO (23:58)
[2019-05-18 00:41] LABS: BASOPHILS ABSOLUTE AUTO 0.02 K/mm3 (0.00-0.23); BASOPHILS PERCENT AUTO 0 % (0-2); EOSINOPHILS ABSOLUTE AUTO 0.01 K/mm3 (0.00-0.68); EOSINOPHILS PERCENT AUTO 0 % (0-6); Hematocrit 42.6 % (33.0-51.0); Hemoglobin 12.7 g/dL (11.5-16.0); IMMATURE GRAN ABSOLUTE AUTO 0.09 K/mm3 (0.00-0.10); IMMATURE GRAN PERCENT AUTO 1 % (0-1); LYMPHOCYTES ABSOLUTE AUTO 1.46 K/mm3 (0.84-5.20); LYMPHOCYTES PERCENT AUTO 10 % (21-46); MONOCYTES ABSOLUTE AUTO 1.92 K/mm3 (0.16-1.47); MONOCYTES PERCENT AUTO 13 % (4-13); Mean Corpuscular HGB 29.7 pg (26.0-34.0); Mean Corpuscular HGB Conc 29.8 g/dL (31.5-36.5); Mean Corpuscular Volume 100 fL (80-100); Mean Platelet Volume 10.2 fL (9.1-12.4); NEUTROPHILS ABSOLUTE AUTO 10.94 K/mm3 (1.96-9.15); NEUTROPHILS PERCENT AUTO 76 % (41-73); Platelet Count 142 K/mm3 (150-400); RDW Standard Deviation 55.2 fL (35.1-46.3); Red Blood Cell Count 4.27 M/mm3 (3.80-5.20); White Blood Cell Count 14.44 K/mm3 (4.00-11.30)
[2019-05-18 01:08] LABS: Alanine Aminotransfer (ALT/SGP 32 U/L (12-78); Albumin, Blood 3.6 g/dL (3.4-5.0); Albumin/Globulin Ratio 0.9 (0.8-1.8); Alk Phos 87 U/L (50-136); Anion Gap 1 mmol/L (6-16); Aspartate Aminotrans (AST/SGOT 24 U/L (12-37); Bilirubin, Total 0.5 mg/dL (0.1-1.0); Blood Urea Nitrogen 11 mg/dL (8-24); Bun/Creatinine Ratio 21.5 (12.0-20.0); CO2, Blood 41 mmol/L (21-32); Calcium, Blood 8.8 mg/dL (8.5-10.1); Chloride, Blood 96 mmol/L (98-108); Creatinine, Blood 0.51 mg/dL (0.40-1.00); Globulin, Blood 4.2 g/dL (2.2-4.0); Glomerular Filtration Rate >60 (60-); Glucose, Blood 119 mg/dL (70-99); Potassium, Blood 4.2 mmol/L (3.5-5.5); Sodium, Blood 138 mmol/L (136-145); Total Protein, Blood 7.8 g/dL (6.4-8.2)
[2019-05-18 03:54] LABS: Hematocrit 42.3 % (33.0-51.0); Hemoglobin 12.5 g/dL (11.5-16.0); Mean Corpuscular HGB 29.6 pg (26.0-34.0); Mean Corpuscular HGB Conc 29.6 g/dL (31.5-36.5); Mean Corpuscular Volume 100 fL (80-100); Mean Platelet Volume 10.4 fL (9.1-12.4); Platelet Count 118 K/mm3 (150-400); RDW Standard Deviation 54.8 fL (35.1-46.3); Red Blood Cell Count 4.23 M/mm3 (3.80-5.20); White Blood Cell Count 12.33 K/mm3 (4.00-11.30)
[2019-05-18 04:16] LABS: Alanine Aminotransfer (ALT/SGP 27 U/L (12-78); Albumin, Blood 3.5 g/dL (3.4-5.0); Albumin/Globulin Ratio 0.9 (0.8-1.8); Alk Phos 84 U/L (50-136); Anion Gap 0 mmol/L (6-16); Aspartate Aminotrans (AST/SGOT 17 U/L (12-37); Bilirubin, Total 0.6 mg/dL (0.1-1.0); Blood Urea Nitrogen 10 mg/dL (8-24); Bun/Creatinine Ratio 19.9 (12.0-20.0); CO2, Blood 41 mmol/L (21-32); Calcium, Blood 8.7 mg/dL (8.5-10.1); Chloride, Blood 98 mmol/L (98-108); Globulin, Blood 4.1 g/dL (2.2-4.0); Glomerular Filtration Rate >60 (60-); Glucose, Blood 133 mg/dL (70-99); Potassium, Blood 4.1 mmol/L (3.5-5.5); Sodium, Blood 139 mmol/L (136-145); Total Protein, Blood 7.6 g/dL (6.4-8.2)
--- NOTE | 2019-05-18 07:43 | NUR ---
PT ON BIPAP OVERNIGHT SATS >90. C/O OF BACK PAIN.TYLENOL GIVEN. BASELINE ANXIOUS AND IMPLUSIVE CONTROLLED WITH ATIVAN GIVEN. PT BP ELEVATED 180S, HYDRALAZINE ORDERED AND GIVEN. WILL CONTINUE TO MONITOR
--- NOTE | 2019-05-18 11:20 | NUR ---
CIVIL RIGHTS ATTEMPTED TO READ PT CIVIL RIGHTS FOR 2 MD HOLD. PT UNABLE TO RECEIVE EDUCATION AT THIS TIME SHE IS AGITATED, NOT UNDERSTANDING. SEE ASSUMPTION OF CARE NOTES AND ASSESSMENTS.
--- NOTE | 2019-05-18 12:30 | NUR ---
CARE ASSUMED REPORT RECEIVED, CARE ASSUMED AT 0700 FROM STEPHANY MALDONADO. UPON BEDSIDE ROUNDING, PT UP IN ROOM, LINES/CORDS DISCONNECTED. PT YELLS, "I AM FINE I AM FINE," AND GETS SELF BACK TO BED. UNSTEADY ON FEET. CORDS/LINES RECONNECTED. BP/HR ELEVATED. PT BREATHING IN 30'S, REFUSING TO WEAR BIPAP MASK. PT GIVEN MORNING MEDICATIONS IN ATTEMPT TO CALM. ALSO GIVEN ATIVAN. UNSUCCESSFUL AT CALMING PT DOWN. PT TEARFUL, YELLING, UP AND DOWN IN BED AND IN THE ROOM, YELLING AT STAFF. ALLOWED PT TO MAKE PHONE CALLS TO FAMILY MEMBERS TO REDIRECT. MULTIPLE STAFF AT BEDSIDE TO PREVENT PT FROM HURTING SELF. PT ACCEPTING OF SOME OF MEDICATIONS IF EXPLAINED THEY ARE FOR HER MENTAL HEALTH, BUT REFUSED OTHERS. PT REPEATEDLY STATING, "I AM GOING TO LEAVE," "LET ME LEAVE." CURSING AT STAFF, REQUESTING EDUCATION BUT UNRECEPTIVE TO REPEATED ATTEMPTS. DR. HANEY UPDATED MULTIPLE TIMES. NEW ORDERS FOR VARIOUS MEDICATIONS INCLUDING PRECEDEX. PRECEDEX STARTED. ATTEMPTED TO START AT 0.7 AND PT CONTINUED TO ESCALATE AND REQUIRE MULTIPLE STAFF AT BEDSIDE TO KEEP PATIENT SAFE. PER DR. HANEY, OK TO TITRATE UP TO 1.4 ON PRECEDEX. PRECEDEX TITRATED UP, PT STILL AGITATED. GOES FROM COMPLETELY ASLEEP, TO UP PULLING AT LINES/TUBES, YELLING AT STAFF "WHAT IS GOING ON," "WHY AM I HERE?" "TELL ME!" "TELL ME!" REGARDLESS OF NUMBERS OF TIMES RE-EDUCATED. DR. HANEY UPDATED, NEW ORDER TO INITIATE TWO MD HOLD FOR PATIENTS SAFETY. DR. QUINONES CONSULTED. SPOKE WITH DR. QUINONES, WHO WAS TO BEDSIDE TO ASSESS PATIENT. SEE CONSULT NOTE. DR. HINKLE ALSO CONSULTED. CALLED FOR CONSULT.
--- NOTE | 2019-05-18 15:00 | NUR ---
AGITATION/PT TO CHAIR PT CONTINUES TO BE INTERMITTENTLY AGITATED. GOES FROM SLEEPING TO UP WALKING AROUND ROOM WITHIN SECONDS. PT PLACED WITH BED ALARM MOST SENSITIVE SETTING, CALL LIGHT IN REACH, AND EDUCATED. PT ABLE TO CRAWL OUT OF BED AROUND BEDSIDE RAILS. AT THIS TIME, UNABLE TO REDIRECT PT INTO BED AND PT TO RECLINER. PT PLACED WITH TAB ALARM UNABLE TO REDIRECT BACK TO BED REGARDLESS OF MULTIPLE RN ATTEMPTS. SPOKE WITH DR. QUINONES REGARDING PHYSICAL RESTRAINTS SUCH ARAM, AND STATES TO WAIT UNTIL PSYCHIATRIC CONSULT IS COMPLETED.
--- NOTE | 2019-05-18 15:40 | NUR ---
PSYCH CONSULT DR. HINKLE TO BEDSIDE FOR ASSESSMENT. PT CONTINUES WITH AGITATION, UNWILLINGNESS TO PARTICIPATE IN ASSESSMENT QUESTIONS. AGITATED, ATTEMPTING TO GET OUT OF CHAIR REPEADEDLY, UNDIRECTABLE. PER DR. HINKLE, PSYCH MEDS RECONCILED. ALSO PER DR. HINKLE, RECOMMENDS PHYSICAL RESTRAINTS TO PROTECT PATIENT. SPOKE WITH DR. STEVENS, ORDER RECEIVED. AT TIME ORDER RECEIVED, PT SITTING UP IN RECLINER ASLEEP. WILL APPLY WHEN ABLE TO GET PATIENT BACK TO BED.
--- NOTE | 2019-05-18 16:22 | NUR ---
CODE HELTON SINCE RECEIVING RESTRAINT ORDER, PT HAS SLEPT QUIETLY IN RECLINER UNTIL PT WOKE UP AND AGAIN BECAME AGITATED, STATING, "WHY AM I HERE? TELL ME! TELL ME" YELLING AT STAFF, PULLING AT LINES/TUBES, GETTING UP AND DOWN REPEATEDLY FROM RECLINER, UNABLE TO ARTICULATE NEEDS OR ALLOW STAFF TO REDIRECT HER. UNRECEPTIVE TO EDUCATION. PT BECOMES AGITATED, TAKES OFF ALL CLOTHES, CORDS AND LINES AND RUNS INTO NURSES STATION SWINGING ARMS TOWARDS STAFF AND YELLING. SECURITY TO BEDSIDE AND ABLE TO REDIRECT PT TO BED. ATTEMPTED TO PLACE ARAM WITH 6 STAFF MEMBERS AT BEDSIDE, BUT ARAM VEST RESTRAINT NOT LARGE ENOUGH. BILATERAL WRIST RESTRAINTS PLACED, LEFT ARM ABOVE HEAD, RIGHT HAND BELOW. PT EDUCATED. TEARFUL, AGITATED THROUGH THE PROCESS.
--- NOTE | 2019-05-18 17:44 | NUR ---
RESTRAINTS - TUFF CUFFS PT RESTING ASLEEP IN BED QUIETLY, WHEN PT SUDDENLY BEGINS YELLING AND SWINGING FEET AROUND. BEFORE STAFF IS ABLE TO BE TO BEDSIDE, PT HAS KICKED IV POLE ALL THE WAY TO GROUND WITH IV CONNECTED TO HER, AND IS UNREDIRECTABLE. BILATERAL TUFF CUFFS PLACED TO LOWER EXTREMITIES. PT EDUCATED.
--- NOTE | 2019-05-18 19:10 | NUR ---
REPORT TO STEPHANY DAVID TO ASSUME CARE
--- NOTE | 2019-05-18 19:30 | NUR ---
SUMMARY SINCE PREVIOUS NOTE, PT HAS CONTINUED TO BE LABILE. SHE IS ASLEEP ONE MOMENT, AND YELLING, AGITATED, PULLING AT RESTRAINTS WITHIN SECONDS. MANAGED WITH PRN ZYPREXA. HAVE CONTINUED WITH ATTEMPTS TO REDIRECT AND EDUCATE. HR NOTED TO SINUS RHYTHM/DIA WITH PROLONGED QT, LIKELY RELATED TO LARGE AMOUNT OF PSYCH MEDICATIONS ORDERED. PLAN TO CONTINUE TO MONITOR CLOSELY FOR CHANGES BY MIXING AND DISPENSING SUPERVISOR RN. OTHERWISE, BP STABLE. SPO2 STABLE ON 4 LPM NASAL CANNULA. PT AFEBRILE.
--- NOTE | 2019-05-18 21:22 | NUR ---
CALL TO DR HINKLE REGARDING ZYPREXA, STS OKAY TO GIVE UP TO 40MG ZYPREXA PER DAY, DC'D AM AND NOON DOSES OF SEROQUEL.
--- NOTE | 2019-05-18 21:31 | NUR ---
ASSUMPTION OF CARE ASSUMED CARE OF PT @ 1900. PT APPEARS TO SLEEPING IN BED, AROUSES TO VERBAL STIMULI, ORIENTED TO SELF AND PLACE, SLURRED SPEECH DIFFICULT TO UNDERSTAND AT TIMES. O2 SATURATIONS> 90% ON 4L PER NC, RESPIRATIONS EVEN AND UNLABORED, RATE 20-25. PT PLACED ON BIPAP @ APPROX 2000, BECOMES AGITATED AT TIMES BUT TOLERATING AT THIS TIME. MONITOR SHOWS BRADYCARDIA, RATE 50'S, HTN WITH SBP 130'S-140'S. PRECEDEX GTT INFUSING @ 1.4 mcg/kg/min (SEE FLOWSHEET). PT TOLERATING SIPS OF WATER FOR DRY MOUTH AND WITH MEDICATIONS. NO APPARENT GI/ ISSUES. PT CURRENTLY IN BILAT SOFT WRIST RESTRAINTS AND TOUGH CUFF BLE RESTRAINTS, STRONG RADIAL AND PEDAL PULSES. PT VERY LABILE ALTERNATING BETWEEN LETHARGIC AND AGITATED/ANXIOUS, PRESSURED SPEECH, YELLING, PULLING AT RESTRAINTS. PT EDUCATED CEMENT TRUCK DRIVER LIGHT USE, WITHIN REACH, NOT USING CALL LIGHT, SCREAMS OUT FOR HELP.
--- NOTE | 2019-05-18 22:32 | NUR ---
ORTIZ CATHETER PT TO BEDPAN @ APPROX 2200, NO VOID ON BEDPAN. BLADDER SCAN SHOWED 521ml, ORTIZ INSERTED, PT TOLERATED PROCEDURE WELL BECOMING SLIGHTLY AGITATED AFTER INSERTION.
[2019-05-18 22:37] LABS: Source, Urine Catheter
[2019-05-18 22:39] LABS: Bilirubin, Urine Neg (Neg); Blood, Urine Neg (Neg); Glucose Qualitative, Urine Neg (Neg); Ketones, Urine Neg (Neg); Leukocyte Esterase, Urine Neg (Neg); Nitrite, Urine Neg (Neg); Protein, Urine Neg (Neg); Urobilinogen, Urine NORM (Normal)
[2019-05-18 22:43] LABS: Appearance, Urine Clear (Clear); Color, Urine Yellow (P-Yellow)
--- NOTE | 2019-05-19 00:28 | NUR ---
AGITATION PT PULLED OUT R SHOULDER IV DURING BREIF BREAK FOR RESTRAINT CHECK WITH RN AT BEDSIDE. R ARM PLACED BACK IN RESTRAINT, PT BECAME VERY AGITATED, PULLING AT ALL 4 RESTRAINTS, RESTLESS IN BED, HITTING AND KICKING BED RAILS, CURSING AT STAFF, SCREAMING "YOU'RE KILLING ME", NOT REDIRECTABLE OR CONSOLABLE. STIMULI REDUCED, STAFF AT BEDSIDE TO ENSURE SAFETY, PT CALMS DOWN ON OWN.
[2019-05-19 03:32] LABS: BASOPHILS ABSOLUTE AUTO 0.02 K/mm3 (0.00-0.23); BASOPHILS PERCENT AUTO 0 % (0-2); EOSINOPHILS ABSOLUTE AUTO 0.05 K/mm3 (0.00-0.68); EOSINOPHILS PERCENT AUTO 1 % (0-6); Hematocrit 39.1 % (33.0-51.0); IMMATURE GRAN ABSOLUTE AUTO 0.02 K/mm3 (0.00-0.10); IMMATURE GRAN PERCENT AUTO 0 % (0-1); LYMPHOCYTES ABSOLUTE AUTO 1.95 K/mm3 (0.84-5.20); LYMPHOCYTES PERCENT AUTO 19 % (21-46); MONOCYTES ABSOLUTE AUTO 1.13 K/mm3 (0.16-1.47); MONOCYTES PERCENT AUTO 11 % (4-13); Mean Corpuscular HGB 29.9 pg (26.0-34.0); Mean Corpuscular HGB Conc 30.7 g/dL (31.5-36.5); Mean Corpuscular Volume 98 fL (80-100); Mean Platelet Volume 10.5 fL (9.1-12.4); NEUTROPHILS ABSOLUTE AUTO 6.87 K/mm3 (1.96-9.15); NEUTROPHILS PERCENT AUTO 68 % (41-73); Platelet Count 106 K/mm3 (150-400); RDW Coefficient Variation 14.3 % (11.7-14.2); Red Blood Cell Count 4.01 M/mm3 (3.80-5.20); White Blood Cell Count 10.04 K/mm3 (4.00-11.30)
[2019-05-19 03:46] LABS: Anion Gap 1 mmol/L (6-16); Blood Urea Nitrogen 15 mg/dL (8-24); CO2, Blood 37 mmol/L (21-32); Calcium, Blood 8.5 mg/dL (8.5-10.1); Chloride, Blood 97 mmol/L (98-108); Creatinine, Blood 0.63 mg/dL (0.40-1.00); Glomerular Filtration Rate >60 (60-); Glucose, Blood 124 mg/dL (70-99); Potassium, Blood 3.8 mmol/L (3.5-5.5); Sodium, Blood 135 mmol/L (136-145)
--- NOTE | 2019-05-19 05:41 | NUR ---
SHIFT SUMMARY No acute changes this shift, pt remains oriented to self t/o shift, oriented to place and situation at times. Periods of rest with frequent but breif periods of unprovoked agitation with pt yelling, pulling at restraints, unreceptive to reorientation. Pt calms on her own, precedex gtt running @ 1.4mcg/kg/min t/o shift, additional prn medications not indicated this shift. LS wheezy, improved with breathing tx, refused AM breathing tx, 4L O2 per NC. Monitor shows sinus rhythm, rate 50's-60's, pt mildly hypertensive with sbp 130's-140's. Magana placed this shift, draining clear dark yellow urine.
--- NOTE | 2019-05-19 06:26 | NUR ---
SHIFT SUMMARY No acute changes this shift, pt remains oriented to self t/o shift, oriented to place and situation at times. Pt continues to have slurred, pressured speech. Pt educated software consultant light, within in reach, does not use call light stating she cannot reach it. Periods of rest with frequent but brief periods of unprovoked agitation with pt yelling, pulling at restraints, unreceptive to reorientation. Pt frequently yelling "Help!", "You're killing me!" and asking how long she will be in the hospital, banging on the side rails, yelling that we are keeping her against her will. Pt calms on her own. precedex gtt running @ 1.4mcg/kg/min t/o shift, additional prn medications not indicated this shift. LS wheezy, improved with breathing tx, refused AM breathing tx, 4L O2 per NC. Monitor shows sinus rhythm, rate 50's-60's, pt mildly hypertensive with sbp 130's-140's. Magana placed this shift, draining clear dark yellow urine.
--- NOTE | 2019-05-19 08:50 | NUR ---
DR JAY IN TO SEE PT Pt up in chair, out of restraints at this time. Precedex at 0.7 mcg/kg/hr.
--- NOTE | 2019-05-19 09:00 | NUR ---
BEGINNING OF SHIFT Assumed care of pt at 0700. Bedside report received from Socorro HAMMOND. At beginning of shift, bilateral wrists restrained with soft restraints. Bilateral ankles restrained with TAT cuffs. Pt on 1.4 mcg/kg/hr precedex. At beginning of shift, pt calling out to staff. This RN asks pt where she is at. Pt states "[facility]". Pt stated belief that she is in the hospital because of her "crazy neighbor". This RN reorients pt and pt states that her neighbor called the ambulance because pt was having difficulty breathing. This RN discusses that pt should stay in hospital and comply with plan of care until her breathing is back to baseline. Pt verbalizes understanding. Pt states she wants to sit in chair. This RN discouraged pt from getting out of bed. Pt states she is very anxious and she belives that getting out of bed will help. All restraints removed. Precedex titrated down to 0.7 mcg/kg/hr. This RN assisted pt to sit in chair. Pt tolerated activity well. Pt sat up in chair for about 15 minutes before going back to bed.
--- NOTE | 2019-05-19 10:30 | NUR ---
DR AMARAL IN TO SEE PT Provider states plan for pt to sit up in chair. States goal for precedex to be titrated off by noon. If pt does well, she may be transferred out of ICU.
--- NOTE | 2019-05-19 11:30 | NUR ---
2 MD HOLD DISCONTINUED Improvement in mentation discussed with Dr Miller. This RN and provider agree that pt is no longer a harm to self or others. 2 MD hold discontinued.
--- NOTE | 2019-05-19 13:00 | NUR ---
CALL PLACED TO DR AMARAL Notified provider that pt has been off precedex since 1114. Provider notified that pt states she is feeling anxious and has been requesting her home medications, specifically clonidine and seroquel. Provider stated these medications may be restarted per home regimen. Provider also stated that pt may be PCU status. Scheduled hydralyzine and BP trend discussed. Hydralyzine discontinued.
--- NOTE | 2019-05-19 14:00 | NUR ---
CALL PLACED TO DR JAY Notified provider that pt would like a nicotine patch. This RN asked pt how much she smokes and pt said "A lot. They usually give me a 21 mg patch". New orders given by provider.
--- NOTE | 2019-05-19 14:30 | NUR ---
PLAN OF CARE DISCUSSED WITH DR AMARAL Discussed that pt has been on 3 LPM NC for several hours, and SpO2 has remained above goal of 88%. Discussed that pt ambulated into bathroom and took a shower. Provider states that pt may be medical floor status without telemetry.
--- NOTE | 2019-05-19 17:23 | NUR ---
ASSUMED CARE RECEIVED REPORT FROM STEPHANY NYE. PT IS ALERT AND ORIENTED TO SELF PLACE AND SITUATION. SHE IS ON 3LNC. STABLE VITALS, BUT IN SINUS TACH (NO CP, SOB). SHE IS SBA, AMBULATING WELL. DYSPNEIC WITH EXERTION. AFEBRILE. NO COMPLAINTS OF PAIN, HOWEVER, STATES SHE FEELS VERY ANXIOUS. SHE WILL BE TRANSFERRED TO [facility] HERE IN A LITTLE BIT. BED LOW AND LOCKED. CALL LIGHT WITHIN REACH.
--- NOTE | 2019-05-19 18:07 | NUR ---
PT TRANSFERED. PT TRANSFERED TO [facility]. PT ANXIOUS. MEDICATED PRIOR TO TRANSFER TO MEDICAL FLOOR. PT ORIENTED TO ROOM. COOL WASHCLOTHE GIVEN TO PT. AIR TURNED DOWN. FAN SET UP PER REQUEST. PT STATES SHE IS FEELING MORE CALM. WILL CONTINUE TO MONITOR.
--- NOTE | 2019-05-19 22:54 | NUR ---
BEGINNING SHIFT SUMMARY ASUMED CARE OF PT AT 1900. PT IS ALERT AND ORIENTED X3, PT IS CONFUSED AT TIMES AND MUMBLES IN HER SLEEP. PT REPEATIVLY ASKS FOR SNACKS, IF SHE HAD FORGOTTEN THAT SHE HAD ONE. HEART SOUNDS TACHY. EXPIRATORY WHEEZES HEARD IN LUNGS, PT US CURRENTLY ON CPAP, 3L NASAL CANNULA DURING THE DAY, THIS IS HER BASELINE, PT STATES THAT SHE IS SOB AND HAVING DIFFICULTY BREATHING, MEDICATED PER EMAR. PT STATES HER ABDOMEN IS TENDER ON PALPITATION AND SHE FEELS BLOATED. PT HAS FREQUENT URINATION, URINE CLEAR AND YELLOW. CALL LIGHT IN REACH, BED IN LOWEST POSTION, BED ALARM ON, WILL CONTINUE TO MONITOR.
--- NOTE | 2019-05-20 04:23 | NUR ---
END SHIFT SUMMARY PT DID NOT SLEEP WELL DURING THE NIGHT. PT WOULD ASK FOR SNACKS CONSTANTLY, WHEN HER REQUEST WAS DENIED, PT WOULD BECOME VERY AGITATED AND STATED THAT SHE WOULD LEAVE TO GO TO THE VENDING MACHINE, PT MEDICATED FOR AGITATION. PT WORE HER CPAP FOR A COUPLE HOURS DURING THE NIGHT BUT TAKES IT OF CONSTANTLY, PT CURRENTLY USING THE NASAL CANNULA AT 3L. PT FREQUENTLY GETS UP TO USE THE COMMODE, AND URINATES LARGE AMOUNT, BETWEEN 500-800ML. PT IS DROWSY AND UNSTEADY ON HER FEET, PT WILL OPEN EYES OCCASIONALLY WHEN TALKING BUT ARE MOSTLY CLOSED. CALL LIGHT IN REACH, BED IN LOWEST POSTION, BED ALARM ON, WILL CONTINUE TO MONITOR UNTIL DAYSHIFT NURSE ARRIVES.
--- NOTE | 2019-05-20 10:10 | NUR ---
PT DEMANDING TO LEAVE. PT DEMANDING TO LEAVE BECAUSE SHE DOES NOT AGREE WITH HER MEDICATION CHANGES. PT DEMANDS SEROQUEL. DR. JAY EXPLAINED THAT SHE IS ON ZYPREXA WITH IS A SIMILAR DRUG RECOMMENDED BY DR. PAZ. PT STATES SHE WILL NOT WAIT FOR DR. PAZ AND WANTS TO LEAVE NOW. PT EDUCATED TO STAY. PT STATES "NO ONE CAN KEEP ME HERE." PT FRIENDS ELTON AND JOSE CONTACTED FOR A RIDE PER PT REQUEST. PT FRIENDS STATED THEY ARE UNABLE TO GET HERE NOW. PT DEMANDING TO GO SIT IN THE LOBBY. PT INFORMED SHE HAS NO OXYGEN. RITESH CONTACTED FOR A O2 TANK. WILL CONTINUE TO MONITOR.
--- NOTE | 2019-05-20 10:33 | NUR ---
WAITING TO HEAR FROM [facility]. WAITING FOR CALL BACK FROM [facility] ON TIME FOR O2 DROP OFF. PT CURRENTLY SLEEPING IN BED. SNORING. DID NOT RESPOND TO THIS RN KNOCKING ON DOOR. WILL CONTINUE TO MONITOR.
--- NOTE | 2019-05-20 10:58 | NUR ---
O2 DELIVERED. PT SLEEPING. FRIEND VISIT O2 DELIVERED FROM [facility]. PT FRIEND, JOSE IN TO SEE PT. JOSE DELIVERED A PHONE RN IMMUNOLOGY. PT BARELY WOKE UP DURING VISIT. PT SLEEPING/SNORING IN ROOM. CURRENTLY. SATING WELL. PT TOLD FRIEND SHE WOULD STAY, BUT NEVER OPENED HER EYES TO SEE PT AND IMMEDIATELY STARTED SNORING AFTER. UNSURE IF PT WILL REMEMBER VISIT. WILL CONTINUE TO MONITOR.
--- NOTE | 2019-05-20 11:57 | NUR ---
pt sleeping review with RN. will return suggest neuro consult outpatient and ot eval.
--- NOTE | 2019-05-20 13:45 | NUR ---
PT AWAKE. PT AWAKE IN ROOM. SEEMS TO HAVE FORGOTTEN THIS AM. DR. JAY CALLED & NOTIFED OF PT UPDATE. NO IV ACCESS ORDER OBTAINED. ATIVAN CHANGED TO PO & Q8H PRN. PT VERY LETHARGIC STILL. VSS. WILL CONTINUE TO MONITOR. ALARM SET.
--- NOTE | 2019-05-20 17:17 | NUR ---
SHIFT SUMMARY PT LABILE TODAY. PT ASKED TO LEAVE AMA TWICE THIS SHIFT. SEE NOTE FOR AM. THIS AFTERNOON PT TRIED TO LEAVE AND COULD NOT FIND A RIDE SO DECIDED TO STAY. PT SATING IN THE 90S ON 3L O2. PULSE OX IN PLACE. NO IV ACCESS ORDER IN PLACE. O CHANGES IN PHYSICAL ASSESSMENT THIS SHIFT. PT ALERT THIS AFTERNOON. PERIODICALLY FALLS ASLEEP THROUGHOUT SHIFT. HEAVY SLEEPER. PT VERY ANXIOUS WHEN AWAKE. ANXIETY HAS IMPROVED FROM THIS AM HOWEVER. VSS. WILL CONTINUE TO MOINTOR UNTIL TURNOVER IS COMPLETE.
--- NOTE | 2019-05-20 19:57 | NUR ---
FREDY JUST WOKE UP. SHE WAS CONFUSED BUT FOLLOWED DIRECTION. SHE IMMEDIATLY ASKED FOR HER PAIN MEDS AND ANXIETY MEDS. SHE TOOK HER NIGHT TIME MEDS BUT WANTED HER SNACKS AND MEDS. SHE STATES PAIN IN BACK. SHE DOES NOT APPEAR ANXIOUS BUT IS WANTING HER MEDS. WILL PULL MEDS AND ADMINISTER THEM. CALL LIGHT AND BED ALARM ARE ON. WILL CONTINUE TO MONITOR.
--- NOTE | 2019-05-21 00:54 | NUR ---
PATIENT WOKE UP FOR RT TO GET HER TREATMENTS. ASKING FOR SNACKS AND SAID IF WE DON'T GIVE HER ANY SHE WILL GO DOWN TO THE VENDING MACHINE. ALSO ASKING FOR HER "KNOCK OUT MEDS" SHE PUT IT. INFORMED HER SHE HAS ALREADY GOTTEN HER ATIVAN, KLONOPIN, AND OXYCODONE. SHE INSISTED SHE HAVE SOMETHING ELSE SHE IS NOT A SLEEP. ASKED ABOUT HER SEREQUEL INFORMED HER IT WAS SWITCHED TO ZYPREXA, SHE GOT VERY AGGITATED AND STARTED TO SAY SHE WILL GO AMA. STATES SHE HAS BEEN ON IT FOR A LONG TIME AND SHE NEEDS IT. "THAT IS WHY IM A CRAZY PERSON RIGHT NOW AND AWAKE CAUSE I DON'T HAVE MY SEREQUEL" SHE CALLED HER FRIEND ASKING FOR MONEY TO CALL A CAB. STARTED SERCHING HER ROOM AND RAISING HER VOICE THAT I TOOK AWAY HER SEREQUAL AND SHE MUST HAVE IT. ACTING LIKE SHE IS ADDICTED TO THE MEDICATION. WENT THROUGH HER MEDS AND TRIED TO REASON WITH HER ABOUT EVERYTHING. GOT HER TO CALM DOWN BY TELLING HER I WILL CALL THE DOCTOR. SPOKE WITH DR. VARGHESE REGARDING THE SITUATION. ORDER FOR JEAN CARLOS RECEIVED.
--- NOTE | 2019-05-21 02:55 | NUR ---
FREDY FELL ASLEEP ONLY FOR SHORT PERIOD OF TIME AFTER GETTING THE HALDOL. SHE AWAKENED TO USE THE BATHROOM, WHEN SHE CAME OUT OF THE BATHROOM SHE HAD HER OXYGEN OFF AND REFUSES TO HAVE THE CONINOUS BIOX BACK ON. STATES IT ANNOYS HER. SHE ASKED AGAIN FOR HER KNOCK OUT MEDS, INFORMED HER GAVE HER ALL I CAN AT THIS MOMENT. SHE INSISTING FOR HER ATIVAN AND PAIN PILL WHICH IS DUE HER SOON. HAVE FOUND HER A COUPLE OF TIMES GOING THROUGH HER BAG WHICH HAS HER PILLS IN IT, LOOKING THROUGH HER MEDS, REFUSES TO GIVE THEM TO ME. TOLD HER THAT SHE IS NOT SUPPOSE TO TAKE ANY OF HER HOME MEDS. THEN GIVE ME SOMETHING TO KNOCK ME OUT SHE SAID. ONCE I LEFT THE ROOM SHE STARTED TO SNORE AND WAS BACK OUT.
[2019-05-21 05:44] LABS: Hematocrit 42.2 % (33.0-51.0); Hemoglobin 12.8 g/dL (11.5-16.0); Mean Corpuscular HGB 29.7 pg (26.0-34.0); Mean Corpuscular HGB Conc 30.3 g/dL (31.5-36.5); Mean Corpuscular Volume 98 fL (80-100); Mean Platelet Volume 10.5 fL (9.1-12.4); Platelet Count 147 K/mm3 (150-400); RDW Coefficient Variation 14.4 % (11.7-14.2); RDW Standard Deviation 52.1 fL (35.1-46.3); Red Blood Cell Count 4.31 M/mm3 (3.80-5.20); White Blood Cell Count 9.01 K/mm3 (4.00-11.30)
[2019-05-21 06:10] LABS: Anion Gap 1 mmol/L (6-16); Blood Urea Nitrogen 20 mg/dL (8-24); Bun/Creatinine Ratio 30.6 (12.0-20.0); CO2, Blood 36 mmol/L (21-32); Calcium, Blood 9.1 mg/dL (8.5-10.1); Chloride, Blood 102 mmol/L (98-108); Creatinine, Blood 0.65 mg/dL (0.40-1.00); Glomerular Filtration Rate >60 (60-); Glucose, Blood 109 mg/dL (70-99); Potassium, Blood 4.3 mmol/L (3.5-5.5); Sodium, Blood 139 mmol/L (136-145)
--- NOTE | 2019-05-21 06:25 | NUR ---
SHIFT SUMMARY: FREDY WS MILDLY CONFUSED AT START OF SHIFT BUT THE NIGHT WENT ON SHE BECAME MORE ORIENTED. SHE DID HAVE A FEW PERIODS OF AGGITATION OVER WHAT MEDICATIONS SHE WAS GETTING AND HOW MUCH. AT ONE TIME SHE WANTED TO GO AMA DUE TO NOT GETTING HER SEREQUEL. SHE WAS YELLING AND MAD SAYING SHE MUST HAVE IT SHE CAN NOT GO WITH OUT. FRUSTRATED THAT SHE NEEDED HER "KNOCK OUT MEDS". THIS IS WHAT SHE ASKED FOR EVERY TIME SHE WOULD WAKE UP. SHE WOULD SLEEP FOR SHORT PERIODS OF TIME LASTING UP TO 30 MINUTES THE MOST. THEN WAKE UP IMMEDIATELY ASKING FOR FOOD, AND KNOCK OUT MEDS. SHE WAS CONSTANTLY WANTING SODA AND FOOD THROUGHOUT THE NIGHT, WHICH CONCERNED FOR CHANGES IN BLOOD SUGAR. BLOOD SUGARS STAYED AROUND 100-110. SHE STATES SHE CONSTANTLY FEELS HUNGRY AND CAN NOT HELP IT. INTAKE WAS UP ABOVE 5460 AND OUTPUT WAS 3050. NO EDEMA WAS NOTED. LUNGS STILL SOUND DIMINISHED WITH WHEEZES. SHE CONTINUED TO TAKE OFF HER OXYGEN AND FORGET TO PUT IT BACK ON. SHE TOOK OFF THE CONTINUOUS BIOX AND REFUSED FOR IT TO BE BACK ON. HOSPITALIST WAS CALLED ONCE FOR ADDITIONAL MEDS TO HELP EASE THE AGGIATION, GAVE HALDOL WHICH DID NOT HAVE EFFECT ON HER. VITALS DID SHOW ELEVATION OF BP WHICH CAME DOWN WHEN HER AGGITATION SUBSIDED SOME. TRIED EDUCATING HER ON THE MEDS SHE TAKES, AND HER DISEASE PROCESS, SHE LISTENED BUT STILL CONTINUED HER PATTERN OF NEEDS. WILL REPORT TO DAYSHIFT THE ISSUES TONIGHT. CALL LIGHT STAYED IN REACH.
--- NOTE | 2019-05-21 10:20 | NUR ---
PT THREATENED TO LEAVE AMA. PT THREATENED TO LEAVE AMA BECAUSE SHE "HAS THINGS TO DO AT HOME". PT EDUCATED THAT SHE SHOULD STAY FOR HOSPITALIST AND PSYCHOLOGIST EVALUATION. PT STATES SHE NEEDS SOMETHING FOR ANXIETY. KLONOPIN GIVEN. PT AGREEING TO STAY TILL DRS CAN SEE HER.
--- NOTE | 2019-05-21 16:55 | NUR ---
SHIFT SUMMARY PT SEEN BY PSYCH TODAY. MEDICATION CHANGES MADE. PT AGREEABLE TO STAY OVERNIGHT AT THIS TIME. NO CHANGES IN ASSESSMENT AT THIS TIME. VSS. PT SATING WELL IN THE 90S ON 3L O2. BASELINE 3L AT HOME. PT EATS LARGE AMOUNTS. SNACKS LIMITED THIS SHIFT. PT ASKING FOR "CALM DOWN MEDS" AND "KNOCK OUT MEDS". PT EDUCATED THAT MED CHANGES WERE MADE AND SHE WILL HAVE MEDS AT 9PM. PT CONTINUES TO FALL ASLEEP WHILE DOING THINGS PERIODICALLY THROUGHOUT SHIFT. ESPECIALLY WHEN EATING. WILL CONTINUE TO MONITOR UNTIL TURNOVER IS COMPLETE.
--- NOTE | 2019-05-21 20:54 | NUR ---
FREDY WAS NAPPING BUT EASILY AWAKENED. WE DISCUSSED HER ONLY HAVING A FEW SNACKS TONIGHT LETTING HER KNOW THERE IS A LIMIT. SHE AGREED TO FOLLOW THE LIMIT. DENIED ANY PAIN AT THIS TIME. STATES SHE TALKED WITH THE DOCTOR TODAY AND ALOT OF HER MEDS WERE SWITCHED. SHE IS HAPPY SHE IS BACK ON HER SEREQUEL. HOPES SHE WILL SLEEP THROUGH THE NIGHT. LUNG SOUNDS DIMINSHED, NO PRODUCTION, REFUSES TO USE CONTINUOUS BIOX, HAS OXYGEN IN PLACE. CALL LIGHT IN REACH.
--- NOTE | 2019-05-21 22:19 | NUR ---
PATIENT WOKE UP AND WALKED OUT INTO THE ESTRELLA ASKING FOR HER SECOND ROUND OF SNACKS. INFORMED HER AGAIN SHE IS ONLY ALLOWED TO HAVE 4 ALL NIGHT. SHE STATED SHE KNOWS. GOT HER A SANDWICH, JELLO, JEFF CRACKERS AND WHEN I GOT BACK TO THE ROOM SHE WAS ALREADY BACK TO SLEEP. LEFT THE FOOD ON THE TABLE.
--- NOTE | 2019-05-22 06:15 | NUR ---
SHIFT SUMMARY: FREDY DID BETTER TONIGHT THEN PREVIOUS NIGHT. SHE WAS GIVEN A LIMIT ON SNACKS WHICH SHE FOLLOWED WELL. SHE SLEPT VERY WELL AFTER GETTING HER EVENING MEDS. SHE WOKE UP ONLY A FEW TIMES BUT WAS ABLE TO GET RIGHT BACK TO SLEEP. SHE DID HAVE TROUBLE REMEMBERING TO USE HER CPAP OR PUT HER OXYGEN ON CAUSING HER SATS TO DROP IN THE LOW 80'S. O2 WAS SET AT 3 LITERS WHICH KEPT HER IN THE 90'S. LUNG SOUNDS WHEEZES AND DIMINISHED, NO PRODUCTION OF COUGH. VS REMAINED WNL. SHE WOKE THIS AM REPORTING MORE RELAX AND FEELING BETTER, HAPPY WITH THE CHANGES IN HER MEDS. WILL REPORT TO DAY SHIFT.
[2019-05-22] MEDS ORDERED: AMLO10 PO (12:21)
[2019-05-22] MEDS ORDERED: BACL20 PO (12:23)
[2019-05-22] MEDS ORDERED: FURO40 PO (12:26)
[2019-05-22] MEDS ORDERED: FAMO20 PO (12:26)
[2019-05-22] MEDS ORDERED: ROBITUSSIN COU237 ML PO (12:26)
[2019-05-22] MEDS ORDERED: NICO21TP TOP (12:26)
[2019-05-22] MEDS ORDERED: PRAZ1 PO (12:27)
[2019-05-22] MEDS ORDERED: POTA10T PO (12:27)
--- NOTE | 2019-05-22 13:41 | NUR ---
DISCHARGE PT DISCHARGED TO HOME. THIS RN EXPLAINED DISCHARGE INSTRUCTIONS AND MEDICATIONS TO PT AND SHE REPORTS SHE UNDERSTANDS. MEDICATIONS FAXED TO [facility] PER PT REQUEST. PT'S BELONGINGS WERE SENT WITH FRIENDS EARLIER. PT TRANSFERRED TO PRIVATE VEHICLE BY RN. PT'S PORTABLE OXYGEN TANK WITH HER.
== END 2019-05-22 13:25 | disposition home or self-care (01) | DRG 189 ==
LOC: ER 23:40 → ICUW 23:42 → PCU 23:42 → ICUW 05-18 02:04 → MEDS 05-18 02:04 → ICUW 05-18 02:05 → MEDS 05-19 17:54 → ENPENDDIS 05-22 11:24 → MEDS 05-22 13:25
PROVIDERS: Emergency Medicine; Hospitalist; Internal Medicine; ADMIT Internal Medicine
PROC: 5A09357 Assistance with Respiratory Ventilation, Less than 24 Consecutive Hours, Continuous Positive Airway Pressure (ICD-10-PCS; principal; 2019-05-17)
DX: J96.21 Acute and chronic respiratory failure with hypoxia (principal); G92 Toxic encephalopathy; J44.1 Chronic obstructive pulmonary disease with (acute) exacerbation; Z68.43 Body mass index [BMI] 50.0-59.9, adult; Z99.81 Dependence on supplemental oxygen; E11.9 Type 2 diabetes mellitus without complications; F31.9 Bipolar disorder, unspecified; F17.210 Nicotine dependence, cigarettes, uncomplicated; K21.9 Gastro-esophageal reflux disease without esophagitis; B19.20 Unspecified viral hepatitis C without hepatic coma; M79.7 Fibromyalgia; Z79.84 Long term (current) use of oral hypoglycemic drugs; E66.01 Morbid (severe) obesity due to excess calories; G40.909 Epilepsy, unspecified, not intractable, without status epilepticus; T38.0X5A Adverse effect of glucocorticoids and synthetic analogues, initial encounter; Y92.239 Unspecified place in hospital as the place of occurrence of the external cause; R45.1 Restlessness and agitation; F22 Delusional disorders; F41.9 Anxiety disorder, unspecified
CPT/HCPCS: 36415; 51702; 71045; 80048; 80053; 81003; 82947; 83880; 85025; 85027; 93005; 93010; 94640; 94644; 94660; 94664; 94667; 94762; 96374; 96375; 98960; 99285-25; 99407; A9270; J0360; J1120; J1630; J1650; J1940; J2060; J2930; J7512

== ENCOUNTER 2019-07-10 21:29 | Inpatient (IN) | payer OTHER ==
[~2019-07-10] VITALS: Ht 170.2 cm; Wt 81.7 kg
[~2019-07-10 21:29] MED LIST changes: +AMLO10 PO; +Adipex-P37.5 MG PO; +BACL20 PO; +FAMO20 PO; +FURO40 PO; +INGREZZA80 MG PO; +MELO7.5 PO; +NICO21TP TOP; +POTA10T PO; +ROBITUSSIN COU237 ML PO; +Zantac150 MG PO
[2019-07-10 22:10] LABS: BASOPHILS ABSOLUTE AUTO 0.02 K/mm3 (0.00-0.23); BASOPHILS PERCENT AUTO 0 % (0-2); EOSINOPHILS ABSOLUTE AUTO 0.17 K/mm3 (0.00-0.68); EOSINOPHILS PERCENT AUTO 2 % (0-6); Hematocrit 41.3 % (33.0-51.0); Hemoglobin 12.3 g/dL (11.5-16.0); IMMATURE GRAN ABSOLUTE AUTO 0.03 K/mm3 (0.00-0.10); IMMATURE GRAN PERCENT AUTO 0 % (0-1); LYMPHOCYTES ABSOLUTE AUTO 1.72 K/mm3 (0.84-5.20); LYMPHOCYTES PERCENT AUTO 18 % (21-46); MONOCYTES ABSOLUTE AUTO 1.25 K/mm3 (0.16-1.47); MONOCYTES PERCENT AUTO 13 % (4-13); Mean Corpuscular HGB 28.9 pg (26.0-34.0); Mean Corpuscular HGB Conc 29.8 g/dL (31.5-36.5); Mean Corpuscular Volume 97 fL (80-100); Mean Platelet Volume 10.7 fL (9.1-12.4); NEUTROPHILS ABSOLUTE AUTO 6.25 K/mm3 (1.96-9.15); NEUTROPHILS PERCENT AUTO 66 % (41-73); Platelet Count 144 K/mm3 (150-400); RDW Coefficient Variation 14.2 % (11.7-14.2); RDW Standard Deviation 50.7 fL (35.1-46.3); Red Blood Cell Count 4.25 M/mm3 (3.80-5.20); White Blood Cell Count 9.44 K/mm3 (4.00-11.30)
[2019-07-10 22:28] LABS: Alanine Aminotransfer (ALT/SGP 24 U/L (12-78); Albumin, Blood 3.6 g/dL (3.4-5.0); Albumin/Globulin Ratio 0.9 (0.8-1.8); Alk Phos 83 U/L (50-136); Anion Gap 6 mmol/L (6-16); Aspartate Aminotrans (AST/SGOT 19 U/L (12-37); Bilirubin, Total 0.2 mg/dL (0.1-1.0); Blood Urea Nitrogen 15 mg/dL (8-24); CO2, Blood 34 mmol/L (21-32); Calcium, Blood 9.2 mg/dL (8.5-10.1); Chloride, Blood 96 mmol/L (98-108); Creatinine, Blood 0.72 mg/dL (0.40-1.00); Globulin, Blood 3.8 g/dL (2.2-4.0); Glomerular Filtration Rate >60 (60-); Glucose, Blood 113 mg/dL (70-99); Potassium, Blood 4.4 mmol/L (3.5-5.5); Salicylate 2.2 mg/dL (2.8-20.0); Sodium, Blood 136 mmol/L (136-145); Total Protein, Blood 7.4 g/dL (6.4-8.2)
[2019-07-10 22:32] LABS: Acetaminophen, Random <2.0 ug/mL (10.0-30.0)
--- NOTE | 2019-07-11 01:00 | NUR ---
ADMIT NOTE 59 YEAR OLD FEMALE ADMEIT TO ICU [address] LOPEZ SERVICE PER RUBI VIA ER.TRANSFERED TO BED USING SLIDER SHEET. AND ASSIST OF FOUR. ANXIOUS NOT FOLLOWING REQUESTS CALLING OUT. MONTIOR PLACED SHOWING SINUS TACH HEART RATE 100'S. LUNG SOUNDS CLEAR UPPER LOBES UNABLE TO ASCESS LOWER LOBES SECONDARY TO PATIENT CALLIN OUT. ABDOMEN SOFT WITH BOWEL SOUNDS FOUR QUADS. NO EDEMA NOTED PEDAL PULSES PRESENT SOARES WELL IN BED. UNABLE TO COMPLETE ADMIT ASSESSMENT AND HX RELEASE OF MEDIACAL INFORMATION OR MED RECONCILATION SECONDARY TO PATIENT STATING "I'M NOT ANSWERING ANY QUESTIONS UNTILL I TALK TO MY TUBE FITTER" REQUESTING PHONE. CALLING DIFFERENT PEOPLE . NPO STATUS EXPLAINED AFTER CONSTANT REQUEST FOR WATER. THREW SWAB AT THIS RN. "I DON'T WANT THAT" DR LOPEZ NOTIFIED ORDERS NOTED. TOLERATES WATER AND JEFF CRACKERS WELL. UP TO BSC WITH ASSIST VOIDS ADRYAN URINE. SPECIMEN SENT TO LAB. CONTINUE TO MONITOR AND REPORT CHANGE IN PATIENT CONDITION
[2019-07-11 02:56] LABS: Source, Urine Clean Catch
[2019-07-11 02:58] LABS: Bilirubin, Urine Neg (Neg); Blood, Urine Neg (Neg); Glucose Qualitative, Urine Neg (Neg); Ketones, Urine Neg (Neg); Leukocyte Esterase, Urine 1+ (Neg); Nitrite, Urine Neg (Neg); Protein, Urine Neg (Neg); Urobilinogen, Urine NORM (Normal); pH, Urine 6.5 (5.0-8.0)
[2019-07-11 03:06] LABS: Appearance, Urine Clear (Clear); Bacteria Few /hpf; Color, Urine Yellow (P-Yellow); Red Blood Cells, Urine 0-2 /hpf (0-2); Squamous Epithelial Cells Few /hpf (Few)
[2019-07-11 03:10] LABS: U Amphetamine Screen Not Detected; U Barbituate Screen Not Detected; U Benzodiazapine Screen Not Detected; U Buprenorphine Screen Not Detected; U Cannabinoids Screen Not Detected; U Cocaine Screen Not Detected; U Methadone Screen Not Detected; U Methamphetamine Screen Not Detected; U Opiates Screen Not Detected; U Oxycodone Screen DETECTED; U Phencyclidine Screen Not Detected; U Propoxyphene Screen Not Detected
[2019-07-11 03:29] LABS: BASOPHILS ABSOLUTE AUTO 0.03 K/mm3 (0.00-0.23); BASOPHILS PERCENT AUTO 0 % (0-2); EOSINOPHILS ABSOLUTE AUTO 0.13 K/mm3 (0.00-0.68); EOSINOPHILS PERCENT AUTO 2 % (0-6); Hematocrit 41.6 % (33.0-51.0); Hemoglobin 12.5 g/dL (11.5-16.0); IMMATURE GRAN ABSOLUTE AUTO 0.03 K/mm3 (0.00-0.10); IMMATURE GRAN PERCENT AUTO 0 % (0-1); LYMPHOCYTES ABSOLUTE AUTO 1.77 K/mm3 (0.84-5.20); LYMPHOCYTES PERCENT AUTO 21 % (21-46); MONOCYTES ABSOLUTE AUTO 1.23 K/mm3 (0.16-1.47); MONOCYTES PERCENT AUTO 15 % (4-13); Mean Corpuscular HGB 29.3 pg (26.0-34.0); Mean Corpuscular Volume 98 fL (80-100); Mean Platelet Volume 10.5 fL (9.1-12.4); NEUTROPHILS ABSOLUTE AUTO 5.11 K/mm3 (1.96-9.15); NEUTROPHILS PERCENT AUTO 62 % (41-73); Platelet Count 130 K/mm3 (150-400); RDW Coefficient Variation 14.2 % (11.7-14.2); RDW Standard Deviation 49.9 fL (35.1-46.3); Red Blood Cell Count 4.26 M/mm3 (3.80-5.20)
[2019-07-11 03:47] LABS: Anion Gap 5 mmol/L (6-16); Blood Urea Nitrogen 14 mg/dL (8-24); Bun/Creatinine Ratio 19.3 (12.0-20.0); CO2, Blood 34 mmol/L (21-32); Calcium, Blood 9.1 mg/dL (8.5-10.1); Chloride, Blood 99 mmol/L (98-108); Creatinine, Blood 0.72 mg/dL (0.40-1.00); Glomerular Filtration Rate >60 (60-); Glucose, Blood 96 mg/dL (70-99); Potassium, Blood 4.6 mmol/L (3.5-5.5); Sodium, Blood 138 mmol/L (136-145)
--- NOTE | 2019-07-11 04:00 | NUR ---
STATES" I'M GOING TO GO AMA TAKE EVERYTHING OFF NOW"" YOU CAN'T STOP ME" DR LOPEZ NOTIFIED. AMA PAPERS OBTAINED AND PATIENT SIGNED. RISKS OF LEAVING AMA EXPLAINED STATED '"I KNOW THAT " " I DON'T CARE, I NEVER SHOULD HAVE GOT IN THE AMBULANCE IN THE [place] PLACE" IV 'S REMOVED WITH CATH INTACT PT CALLED CAB. ESCORTED TO CAB IN WHEELCHAIR. SPEEC H CLEAR ORIENTED TO PLACE PERSON AND TIME
== END 2019-07-11 04:36 | disposition left against medical advice (07) | DRG 917 ==
LOC: ER 21:29 → ICUW 22:20 → ICUE 07-11 00:48
PROVIDERS: Nurse Practitioner Acute Care; Physician Assistant; ADMIT Internal Medicine
DX: T50.904A Poisoning by unspecified drugs, medicaments and biological substances, undetermined, initial encounter (principal); G92 Toxic encephalopathy; M35.8 Other specified systemic involvement of connective tissue; E11.9 Type 2 diabetes mellitus without complications; G47.33 Obstructive sleep apnea (adult) (pediatric); J44.9 Chronic obstructive pulmonary disease, unspecified; G89.4 Chronic pain syndrome; I10 Essential (primary) hypertension; F31.9 Bipolar disorder, unspecified; F20.9 Schizophrenia, unspecified; K21.9 Gastro-esophageal reflux disease without esophagitis; M79.7 Fibromyalgia
CPT/HCPCS: 36415; 80048; 80053; 81001; 85025; 87086; 87147; 93005; 93010; 96374; 99285-25; G0480; J1630; J2310

== ENCOUNTER 2019-08-27 19:35 | Inpatient (IN) | payer OTHER ==
[~2019-08-27] VITALS: Ht 165.1 cm; Wt 140.0 kg
[~2019-08-27 19:35] MED LIST changes: -ALBU90OI61 INH; -AMLO10 PO; -B-121000 MC3 PO; -BUDE6HFA INH; -Buspirone HCl30 MG PO; -CLON.1 PO; -FURO40 PO; -GABA300 PO; -Lamictal150 MG PO; -METFORMIN HCL500 M2 PO; -NEURONTIN300 MG PO; -POTA10T PO; -QUET200 PO; -TESSALON PERLE100 MG PO
[2019-08-27] MEDS ORDERED: AMLODIPINE BESYL5 MG PO (19:57)
[2019-08-27] MEDS ORDERED: VRAYLAR1.5 MG PO (19:58)
[2019-08-27] MEDS ORDERED: NEURONTIN300 MG PO (19:59)
[2019-08-27] MEDS ORDERED: GABA300 PO (20:00)
[2019-08-27] MEDS ORDERED: OMEP20ER PO (20:01)
[2019-08-27 20:02] LABS: Source, Urine Catheter
[2019-08-27 20:02] LABS: BASOPHILS ABSOLUTE AUTO 0.04 K/mm3 (0.00-0.23); BASOPHILS PERCENT AUTO 0 % (0-2); EOSINOPHILS ABSOLUTE AUTO 0.07 K/mm3 (0.00-0.68); EOSINOPHILS PERCENT AUTO 1 % (0-6); Hematocrit 47.3 % (33.0-51.0); IMMATURE GRAN ABSOLUTE AUTO 0.06 K/mm3 (0.00-0.10); IMMATURE GRAN PERCENT AUTO 0 % (0-1); LYMPHOCYTES ABSOLUTE AUTO 1.88 K/mm3 (0.84-5.20); LYMPHOCYTES PERCENT AUTO 13 % (21-46); MONOCYTES ABSOLUTE AUTO 1.21 K/mm3 (0.16-1.47); MONOCYTES PERCENT AUTO 8 % (4-13); Mean Corpuscular HGB 26.9 pg (26.0-34.0); Mean Corpuscular HGB Conc 29.6 g/dL (31.5-36.5); Mean Corpuscular Volume 91 fL (80-100); Mean Platelet Volume 9.9 fL (9.1-12.4); NEUTROPHILS ABSOLUTE AUTO 11.38 K/mm3 (1.96-9.15); NEUTROPHILS PERCENT AUTO 78 % (41-73); Platelet Count 167 K/mm3 (150-400); RDW Coefficient Variation 15.2 % (11.7-14.2); RDW Standard Deviation 50.3 fL (35.1-46.3); White Blood Cell Count 14.64 K/mm3 (4.00-11.30)
[2019-08-27] MEDS ORDERED: CLON.1 PO (20:03)
[2019-08-27] MEDS ORDERED: METFORMIN HCL500 M2 PO (20:03)
[2019-08-27] MEDS ORDERED: LAMO100 PO (20:04)
[2019-08-27] MEDS ORDERED: Buspirone HCl30 MG PO (20:04)
[2019-08-27 20:06] LABS: Bilirubin, Urine Neg (Neg); Blood, Urine Neg (Neg); Glucose Qualitative, Urine Neg (Neg); Ketones, Urine Neg (Neg); Leukocyte Esterase, Urine 1+ (Neg); Nitrite, Urine Neg (Neg); Protein, Urine Neg (Neg); Urobilinogen, Urine NORM (Normal)
[2019-08-27] MEDS ORDERED: QUET200 PO ×2 (20:06)
[2019-08-27] MEDS ORDERED: MOBIC15 MG PO (20:07)
[2019-08-27] MEDS ORDERED: Robaxin750 MG PO (20:08)
[2019-08-27] MEDS ORDERED: OXYC5 PO (20:09)
[2019-08-27] MEDS ORDERED: FURO40 PO (20:09)
[2019-08-27] MEDS ORDERED: POTA10T PO (20:09)
[2019-08-27] MEDS ORDERED: B-121000 MC3 PO (20:11)
[2019-08-27] MEDS ORDERED: Tessalon200 MG PO (20:11)
[2019-08-27] MEDS ORDERED: OLANZAPINE20 MG PO (20:12)
[2019-08-27] MEDS ORDERED: ALBU90OI61 INH (20:13)
[2019-08-27 20:14] LABS: Alanine Aminotransfer (ALT/SGP 14 U/L (12-78); Albumin, Blood 3.4 g/dL (3.4-5.0); Albumin/Globulin Ratio 0.8 (0.8-1.8); Alk Phos 102 U/L (50-136); Anion Gap 1 mmol/L (6-16); Aspartate Aminotrans (AST/SGOT 11 U/L (12-37); Bilirubin, Total 0.2 mg/dL (0.1-1.0); Blood Urea Nitrogen 11 mg/dL (8-24); Bun/Creatinine Ratio 19.1 (12.0-20.0); CO2, Blood 41 mmol/L (21-32); Calcium, Blood 9.1 mg/dL (8.5-10.1); Chloride, Blood 96 mmol/L (98-108); Creatinine, Blood 0.58 mg/dL (0.40-1.00); Ethanol (Alcohol), Blood, Med 24 mg/dL; Globulin, Blood 4.5 g/dL (2.2-4.0); Glomerular Filtration Rate >60 (60-); Glucose, Blood 114 mg/dL (70-99); Potassium, Blood 4.4 mmol/L (3.5-5.5); Salicylate 3.7 mg/dL (2.8-20.0); Sodium, Blood 138 mmol/L (136-145); Total Protein, Blood 7.9 g/dL (6.4-8.2)
[2019-08-27] MEDS ORDERED: BUDE6HFA INH (20:14)
[2019-08-27 20:15] LABS: Appearance, Urine Clear (Clear); Color, Urine Yellow (P-Yellow)
[2019-08-27 20:16] LABS: Acetaminophen, Random <2.0 ug/mL (10.0-30.0)
[2019-08-27 20:16] LABS: Bacteria Few /hpf; Red Blood Cells, Urine 0-2 /hpf (0-2); Squamous Epithelial Cells Rare /hpf (Few); White Blood Cells, Urine 0-2 /hpf (0-5)
[2019-08-27 20:16] LABS: PO2 Arterial 111 mmHg (80-100)
[2019-08-27 20:17] LABS: PCO2 Arterial 91.5 mmHg (35-45); pH Blood Arterial 7.26 (7.35-7.45)
[2019-08-27] MEDS ORDERED: ALBU2.5V5 NEB (20:17)
[2019-08-27 20:26] LABS: U Amphetamine Screen DETECTED; U Barbituate Screen Not Detected; U Benzodiazapine Screen Not Detected; U Buprenorphine Screen Not Detected; U Cannabinoids Screen Not Detected; U Cocaine Screen Not Detected; U Methadone Screen Not Detected; U Methamphetamine Screen DETECTED; U Opiates Screen Not Detected; U Oxycodone Screen Not Detected; U Phencyclidine Screen Not Detected; U Propoxyphene Screen Not Detected
[2019-08-27] MEDS ORDERED: METF500 PO (21:38)
--- NOTE | 2019-08-27 23:32 | NUR ---
PT TO ICU 13 FROM ED. PT ARRIVES VENTED AND SEDATED. VENT SETTINGS AC 24/450/5/40%. SEDATED WITH PROPOFOL 50 MCG/KG/MIN INFUSING IN LFA 20G IV. PT FAILS TO SPONTANEOUSLY OPEN EYES OR FOLLOW COMMANDS, PT WITHDRAWS FROM PAINFUL STIMULI AND REACHES FOR TUBE. LUNG SOUNDS CLEAR T/O, COPIOUS AMOUNTS OF THIN CLEAR ORAL SECRETIONS. OGT HOOKED TO LIS, CLEAR SECRETION NOTED. ORTIZ PATENT AND DRAINING CLEAR ADRYAN URINE. NS@ 100 ML/HR INFUSING INTO 22G RH IV. PT IN BILATERAL SOFT WRIST RESTRAINTS. PSYCH CONSULT INPUT. WILL REASSESS SI WHEN PT RESPONSIVE. SEE FULL ADMISSION ASSESSMENT
--- NOTE | 2019-08-28 01:18 | NUR ---
CALLED POISON CONTROL. POISON CONTROL RECOMMENDATION: RECHECK ABG, RECHECK SALICYLATE LEVEL NOW. MONITOR FOR PROLONGED QTC (GREATER THAN [phone]). MONITOR FOR TACHYCARDIA, SEROTONIN SYNDROME, SEIZURE. POISON CONTROL TO CALL FOR LAB RESULTS IN 1 HOUR.
[2019-08-28 01:38] LABS: PO2 Arterial 52.4 mmHg (80-100); pH Blood Arterial 7.54 (7.35-7.45)
[2019-08-28 01:49] LABS: BASOPHILS ABSOLUTE AUTO 0.02 K/mm3 (0.00-0.23); BASOPHILS PERCENT AUTO 0 % (0-2); EOSINOPHILS ABSOLUTE AUTO 0.09 K/mm3 (0.00-0.68); EOSINOPHILS PERCENT AUTO 1 % (0-6); Hematocrit 44.5 % (33.0-51.0); Hemoglobin 13.4 g/dL (11.5-16.0); IMMATURE GRAN ABSOLUTE AUTO 0.06 K/mm3 (0.00-0.10); IMMATURE GRAN PERCENT AUTO 1 % (0-1); LYMPHOCYTES ABSOLUTE AUTO 1.89 K/mm3 (0.84-5.20); LYMPHOCYTES PERCENT AUTO 16 % (21-46); MONOCYTES ABSOLUTE AUTO 1.08 K/mm3 (0.16-1.47); MONOCYTES PERCENT AUTO 9 % (4-13); Mean Corpuscular HGB Conc 30.1 g/dL (31.5-36.5); Mean Corpuscular Volume 90 fL (80-100); Mean Platelet Volume 10.6 fL (9.1-12.4); NEUTROPHILS ABSOLUTE AUTO 9.07 K/mm3 (1.96-9.15); NEUTROPHILS PERCENT AUTO 74 % (41-73); Platelet Count 151 K/mm3 (150-400); RDW Coefficient Variation 15.3 % (11.7-14.2); RDW Standard Deviation 49.1 fL (35.1-46.3); Red Blood Cell Count 4.97 M/mm3 (3.80-5.20); White Blood Cell Count 12.21 K/mm3 (4.00-11.30)
[2019-08-28 02:07] LABS: Anion Gap 3 mmol/L (6-16); Blood Urea Nitrogen 13 mg/dL (8-24); Bun/Creatinine Ratio 20.7 (12.0-20.0); CO2, Blood 38 mmol/L (21-32); Calcium, Blood 8.7 mg/dL (8.5-10.1); Chloride, Blood 99 mmol/L (98-108); Creatinine, Blood 0.63 mg/dL (0.40-1.00); Glomerular Filtration Rate >60 (60-); Glucose, Blood 92 mg/dL (70-99); Potassium, Blood 3.5 mmol/L (3.5-5.5); Sodium, Blood 140 mmol/L (136-145)
--- NOTE | 2019-08-28 03:07 | NUR ---
POISON CONTROL UPDATED ON PT CONDITION. NO FURTHER SUGGESTIONS/ORDERS. WILL CONTINUE TO FOLLOW PATIENT
--- NOTE | 2019-08-28 05:42 | NUR ---
SHIFT SUMMARY PT REMAINS INTUBATED, VENT SETTINGS AC 20/450/8/40%. PT HARD TO ADEQUATELY SEDATE, PROPOFOL CURRENTLY AT 65 MCG/KG/MIN. ATTEMPTS TO TITRATE SEDATION DOWN RESULT IN PT COUGHING AND THRASHING HEAD, INCREASE IN RR, BP, HR, AND DECREASED SATURATIONS. PT RESPONSIVE TO VERBAL STIMULI, FOLLOWS COMMANDS (SQUEEZES HANDS), SHAKES HEAD YES/NO. PT EASILY AGITATED, KICKS FEET, PULLS ON RESTRAINTS. CONTINUES TO HAVE COPIOUS AMOUNTS OF CLEAR/THIN ORAL SECRETIONS. MINIMAL AMOUNT OF CLEAR THIN SECRETIONS FROM ETT. 300 ML BILE OUT OF OGT. 600 ML URINARY OUTPUT. VSS T/O SHIFT. WILL REPORT TO DAYSHIFT NURSE
--- NOTE | 2019-08-28 08:00 | NUR ---
ASSUMED CARE BEDSIDE REPORT RECIEVED. PT IS INTUBATED AND SEDATED. VENT SETTINGS AC 20, TV 450, PEEP 8, FIO2 40%. PT SEDATED WITH PROPOFOL AT 75 MCG/KG/MIN. PT WITH PERIODS OF SEVERE RESTLESSNESS AND THRASHING IN BED. PT OPENS EYES SPONTANEOUSLY. PT SQUEEZES HANDS UPON COMMAND AT TIMES. NOT FOLLOW ANY OTHER COMMANDS. NS INFUSING AT 100 ML/HR. PT WITH OGT IN PLACE TO LIS WITH MINIMAL OUTPUT NOTED. ORTIZ IN PLACE WITH GREEN OUTPUT NOTED. SBW RESTRAINTS IN PLACE. DR QUICK NOTIFIED OF CONTINUED RESTLESSNESS DESPITE PROPOFOL AT 75 MCG/KG/MIN. ORDERS RECIEVED FOR FENTANYL PRN. VITAL SIGNS STABLE. WILL CONTINUE TO MONITOR.
--- NOTE | 2019-08-28 17:53 | NUR ---
SHIFT SUMMARY NO ACUTE CHANGES THIS SHIFT. PT REMAINS INTUBATED AND SEDATED. VENT SETTINGS CHANGED TO AC 16, TV 450, PEEP 5, FIO2 40%. PT SEDATED WITH PROPOFOL BETWEEN 50-75 MCG/KG/MIN, PRECEDEX AT 0.7 MCG/KG/MIN, AND FENTANYL IVP PRN. PT DIFFICULT TO SEDATE. PT IS RESTLESS AND THRASHING IN BED AT TIMES. OGT IN PLACE TO LIS WITH MINIMAL AMOUNT OF BILE OUTPUT NOTED. POWERGLIDE PLACED TO LAM. NS INFUSING AT 100 ML/HR. ORTIZ IN PLACE WITH DARK GREEN URINE OUTPUT NOTED. SBW RESTRAINTS REMAIN IN PLACE. VITAL SIGNS HAVE REMAINED STABLE. WILL CONTINUE TO MONITOR AND REPORT OFF TO ONCOMING RN.
--- NOTE | 2019-08-28 20:36 | NUR ---
ASSUMED CARE OF PT, REPORT RCV'D FROM STEPHANY LOZANO. PT ALERT TO VERBAL STIMULI, SHAKES HEAD YES/NO IN RESPONSE TO QUESTIONS, SQUEEZES HANDS ON DEMAND, SOARES. PT EASILY AGITATED AND DIFFICULT TO SEDATE. PT THRASHES HEAD BACK/FORTH, INCREASED RR, BP, HR, DECREASED O2 SATURATION WITH ANY STIMULUS. PT CURRENTLY ON PROPOFOL 65 MCG/KG/MIN, GOAL TO REDUCE PROPOFOL TO 40-50 MCG/KG/MIN. PRECEDEX @ 1.4 MCG/KG/HR, FENTANYL 100 MCG Q1 PRN. DESPITE INCREASED SEDATION PT CONTINUES TO THRASH AROUND, ORDER FOR 0.1-1 MG ATIVAN Q4 PRN RECEIVED WITH ENCOURAGED MINIMAL USE. BILATERAL SOFT WRIST RESTRAINTS IN PLACE. VENT SETTINGS AC 14/450/5/40%, SATS 90%. VSS. PT AFEBRILE AT THIS TIME. ORTIZ PATENT AND DRAINING. PER CONVERSATION WITH DR. QUICK, PLAN TO EXTUBATE TOMORROW. SEE FULL SHIFT ASSESSMENT
[2019-08-29 03:36] LABS: BASOPHILS ABSOLUTE AUTO 0.03 K/mm3 (0.00-0.23); BASOPHILS PERCENT AUTO 0 % (0-2); EOSINOPHILS ABSOLUTE AUTO 0.15 K/mm3 (0.00-0.68); EOSINOPHILS PERCENT AUTO 2 % (0-6); Hematocrit 45.3 % (33.0-51.0); Hemoglobin 13.8 g/dL (11.5-16.0); IMMATURE GRAN ABSOLUTE AUTO 0.03 K/mm3 (0.00-0.10); IMMATURE GRAN PERCENT AUTO 0 % (0-1); LYMPHOCYTES PERCENT AUTO 17 % (21-46); MONOCYTES PERCENT AUTO 9 % (4-13); Mean Corpuscular HGB 27.1 pg (26.0-34.0); Mean Corpuscular HGB Conc 30.5 g/dL (31.5-36.5); Mean Corpuscular Volume 89 fL (80-100); Mean Platelet Volume 10.6 fL (9.1-12.4); NEUTROPHILS ABSOLUTE AUTO 7.02 K/mm3 (1.96-9.15); NEUTROPHILS PERCENT AUTO 71 % (41-73); Platelet Count 140 K/mm3 (150-400); RDW Coefficient Variation 15.5 % (11.7-14.2); RDW Standard Deviation 49.9 fL (35.1-46.3); White Blood Cell Count 9.83 K/mm3 (4.00-11.30)
[2019-08-29 03:40] LABS: Base Excess Venous 7.1 mmol/L; Bicarbonate Venous 29.1 mmol/L (24.0-30.0); PCO2 Venous 54.6 mmHg (38-42); PO2 Venous 61.6 mmHg (38-42); pH Blood Venous 7.38 (7.34-7.37)
[2019-08-29 03:52] LABS: Alanine Aminotransfer (ALT/SGP 13 U/L (12-78); Albumin/Globulin Ratio 0.8 (0.8-1.8); Alk Phos 84 U/L (50-136); Anion Gap 4 mmol/L (6-16); Aspartate Aminotrans (AST/SGOT 16 U/L (12-37); Bilirubin, Total 0.3 mg/dL (0.1-1.0); Blood Urea Nitrogen 11 mg/dL (8-24); Bun/Creatinine Ratio 16.6 (12.0-20.0); CO2, Blood 33 mmol/L (21-32); Calcium, Blood 8.4 mg/dL (8.5-10.1); Chloride, Blood 103 mmol/L (98-108); Creatinine, Blood 0.66 mg/dL (0.40-1.00); Globulin, Blood 3.9 g/dL (2.2-4.0); Glomerular Filtration Rate >60 (60-); Glucose, Blood 126 mg/dL (70-99); Sodium, Blood 140 mmol/L (136-145); Total Protein, Blood 6.9 g/dL (6.4-8.2)
--- NOTE | 2019-08-29 06:14 | NUR ---
SHIFT SUMMARY PT REMAINS INTUBATED AND SEDATED. VENT SETTINGS AC 16/450/5/40%. PT SEDATED ON PROPOFOL 40 MCG/KG/MIN, PRECEDEX 1.4 MCG/KG/HR AND FENTANYL PRN. PT MUCH MORE CALM AND VENT COMPLIANT ON PRECEDEX. PT FOLLOWS COMMANDS AND ABLE TO EXPRESS NEEDS SUCH SITTING UP IN BED. PT SUCCESSFULLY PASSED HER WEAN AND SEDATION VACATION THIS MORNING. PT ASKED FOR PAPER/PEN TO WRITE BUT WAS UNABLE TO. MODERATE AMOUNT OF THIN/CLEAR ORAL SECRETIONS. LUNG SOUNDS OCCASIONALLY COARSE. 800 ML GREEN URINARY OUTPUT. VSS WITH OCCASIONAL PERIODS OF HYPERTENSION. WILL REPORT TO DAYSHIFT NURSE.
--- NOTE | 2019-08-29 10:56 | NUR ---
CARE ASSUMED ASSESSMENT COMPLETED, PT GIVEN FENTANYL FOR AGITAION AFTER ETT SUCTIONING, RESPONDS WELL TO FENTANYL. PT NOW RESTING QUIETLY, WILL OPEN EYES TO NOXIOUS STIMULI BUT DOES NOT FOLLOW DIRECTIONS OR TRACK. HR 61 SINUS, BP HYPERTENSIVE, LS COARSE IN RUL, DIMINISHED T/O. CLEAR THIN SECRETIONS FROM ETT, VENT SETTINGS AC 16, VT 450, FIO2 30%, PEEP 5, PT'S SPO2 95%, RR 16, Vt 400'S. PROPOFOL 40MCG, PRECEDEX 1.4MCG. ORTIZ PATENT AND DRAINING TO GRAVITY, URINE GREEN AFTER RECEIVING HIGH DOSES OF PROPOFOL. DR. QUICK IN TO DISCUSS PLAN OF CARE, HYDRALAZINE ADMINISTERED FOR HYPERTENSION, TITRATING PROPOFOL DOWN IN PREPARATION FOR POSSIBLE EXTUBATION TODAY. POISON CONTROL UPDATED. HR 70 SINUS WITH DECREASE IN PROPOFOL, PT OPENS EYES SPONTANEOUSLY, FOLLOWS SIMPLE COMMANDS. BP DECREASED AFTER HYDRALAZINE BUT REMAINS HYPERTENSIVE.
--- NOTE | 2019-08-29 12:44 | NUR ---
UPDATE PROPOFOL TITRATED DOWN TO 25MCG, PRECEDEX UNCHANGED. PT BECAME ALERT, TRACKING, FOLLOWING DIRECTIONS, ABLE TO MOVE SELF IN BED FOR REPOSITIONING. RT AT BEDSIDE FOR SBT, PT ON PS 10/5, BECAME TACHYPNEIC AND ANXIOUS, RR 40'S, SPO2 88-93%. VENT BACK TO AC AT PREVIOUS SETTINGS, PROPOFOL BACK UP TO 40MCG. LASIX ADMINISTERED PER ORDERS, PT RESTING QUIETLY AT THIS TIME WITH EYES CLOSED. HR 70'S SINUS, BP 170/90'S.
--- NOTE | 2019-08-29 16:16 | NUR ---
UPDATE PT HAS HAD LARGE VOLUMES OF URINE OUTPUT SINCE LASIX, LS REMAIN COARSE T/O. SPUTUM PRODUCTION SLOWING DOWN, REMAINS CLEAR/WHITE. PT ADEQUATELY SEDATED, RR 16-20, NO GRIMACING OR RESTLESSNESS NOTED. PROPOFOL 40MCG, PRECEDEX 1.4MCG. WILL CONTINUE TO MONITOR.
--- NOTE | 2019-08-29 18:46 | NUR ---
END OF SHIFT PT CONTINUES TO REST QUIETLY, IS WELL SEDATED AT THIS TIME, VSS. BP HAS IMPROVED THIS SHIFT, IS NOW 150'S/80'S, HR 70'S NSR. LS SLIGHTLY COARSE, NO WHEEZES NOTED THIS EVENING, SPO2 MID 90'S. VENT SETTINGS AC 16, Vt 450, PEEP 5, FIO2 35%. PT HAD 4.5+ LITERS OF URINE THIS SHIFT AFTER LASIX ADMINISTERED, WILL REASSESS FOR EXTUBATION TOMORROW. PRECEDEX 1.4MCG/KG/HR, PROPOFOL 40MCG/KG/HR, NS 100ML/HR. REPORT TO ONCOMING SHIFT.
--- NOTE | 2019-08-29 20:00 | NUR ---
ASSUMPTION OF CARE: PT INTUBATED AND SEDATED. IN SR. SBP IN THE 150S, HR IN THE 60S. LUNG SOUNDS ARE COARSE/WHEEZY IN UPPERS, DIM IN BASES. VENT SETTINGS ARE AC 16/450/35%/5. PT TOLERATING VENT WELL. OG TUBE IN PLACE TO LIS-GREENISH BILE. ORTIZ IN PLACE. URINE IS A DARK GREEN COLOR. PG IN LAM. PIV IN R WRIST- PATENT AND SL. PIV IN LFA. INFUSING. PT HAS PROPOFOL INFUSING AT 40MCG AND PRECEDEX AT 1.4MCG. SKIN IS INTACT T/O. SOME REDDNESS TO UNDER L SIDE PANNUS. WILL CONTINUE TO MONITOR
--- NOTE | 2019-08-30 04:22 | NUR ---
PRECEDEX ON STANDBY AND PROPOFOL DOWN TO 20MCG FOR WEAN. RT AT BEDSIDE. WILL CONTINUE TO MONITOR
--- NOTE | 2019-08-30 06:10 | NUR ---
SHIFT SUMMARY: PT ALERT, FOLLOWING COMMANDS AND ABLE TO ANSWER QUESTIONS DURING WEAN. CURRENTLY BACK ON AC SETTINGS-15/450/35%/7. PRECEDEX REMAINS ON STANDBY AT THIS TIME. LUNG SOUNDS HAVE BEEN COARSE AND WHEEZY, JAVI ON R SIDE. VSS. NO BM THIS SHIFT. URINE OUTPUT IS GREEN IN COLOR. HAS PG TO LAM AND PIV IN LFA. PROPOFOL INFUSING AT 40MCG AND NS AT 100MLS/HR. WILL PASS REPORT TO ONCOMING SHIFT.
[2019-08-30 08:49] LABS: Hematocrit 44.8 % (33.0-51.0); Hemoglobin 13.8 g/dL (11.5-16.0); Mean Corpuscular HGB 27.1 pg (26.0-34.0); Mean Corpuscular HGB Conc 30.8 g/dL (31.5-36.5); Mean Corpuscular Volume 88 fL (80-100); Mean Platelet Volume 10.3 fL (9.1-12.4); Platelet Count 152 K/mm3 (150-400); RDW Coefficient Variation 15.9 % (11.7-14.2); RDW Standard Deviation 50.5 fL (35.1-46.3); Red Blood Cell Count 5.09 M/mm3 (3.80-5.20); White Blood Cell Count 10.99 K/mm3 (4.00-11.30)
[2019-08-30 09:16] LABS: Albumin, Blood 2.8 g/dL (3.4-5.0); Anion Gap 7 mmol/L (6-16); Blood Urea Nitrogen 9 mg/dL (8-24); Bun/Creatinine Ratio 16.9 (12.0-20.0); CO2, Blood 28 mmol/L (21-32); Calcium, Blood 8.4 mg/dL (8.5-10.1); Chloride, Blood 108 mmol/L (98-108); Creatinine, Blood 0.53 mg/dL (0.40-1.00); Glomerular Filtration Rate >60 (60-); Glucose, Blood 105 mg/dL (70-99); Magnesium, Blood 2.1 mg/dL (1.6-2.4); Phosphorus, Blood 4.3 mg/dL (2.5-4.9); Potassium, Blood 3.8 mmol/L (3.5-5.5); Sodium, Blood 143 mmol/L (136-145)
--- NOTE | 2019-08-30 11:09 | NUR ---
CARE ASSUMED/EXTUBATION ASSESSMENT COMPLETED, VENT SETTINGS AC 16, Vt 450, FIO2 35%, PEEP 7. VSS AT THIS TIME, PT RESTING QUIETLY WITH EYES CLOSED, OPENS EYES WHEN HER NAME IS CALLED, FOLLOWS DIRECTIONS, ABLE TO REPOSITION HERSELF IN BED WITH VERBAL DIRECTION. PT CALM AND COOPERATIVE, REMAINS IN SWB, PROPOFOL 40MCG, PRECEDEX 0.7MCG. DR. QUICK IN TO SEE PATIENT, PROPOFOL SHUT OFF AT 0845, PRECEDEX INCREASED TO 1.4 MCG, VENT SETTINGS CHANGED TO PS 5, PEEP 5. PT TOLERATING SBT WELL, Vt'S 300'S, RR 30, SPO2 93% ON 35% FIO2. PT WRITES SHE "CAN'T BREATHE," COACHED IN BREATHING TECHNIQUES, 1MG ATIVAN ADMINISTERED. PT DID WELL WITH SBT, DR. QUICK NOTIFIED, PT EXTUBATED AT 0952, O2 APPLIED AT 2L/NC. SPO2 MID 90'S, PT SITTING UP IN BED USING FLUTTER VALVE, COUGH STRONG. EXPECTORATING CLEAR MUCOUS. PT ASSISTED UP TO BSC FOR A BM, GAIT SLOW BUT STEADY, PT FOLLOWS DIRECTION WELL. ASSISTED BACK TO BED, SWALLOW EVAL COMPLETED AND PASSED WITHOUT DIFFICULTY. PT GIVEN WATER AND ICE CHIPS, DENIES OTHER NEEDS. POISON CONTROL UPDATED.
--- NOTE | 2019-08-30 15:10 | NUR ---
UPDATE AFTER EXTUBATION PT WAS ASKED SI ASSESSMENT QUESTIONS, DENIES BEING SUICIDAL NOW OR EVER IN THE PAST, STATES SHE HAS NEVER HAD THOUGHTS OF HURTING HERSELF OR OTHERS. PT STATES SHE DOES NOT REMEMBER WHY SHE WAS BROUGHT TO ER, PT INFORMED OF DRUG OVERDOSE AND ETOH USE, REPORTS SHE WAS AT A [employer] DRINKING BUT WAS NOT SUICIDAL, DENIES REGULAR ALCOHOL CONSUMPTION. DR. MENDOZA NOTIFIED OF PT DENYING SI, WILL BE IN TO ASSESS PATIENT. PRECEDEX TURNED OFF SHORTLY AFTER EXTUBATION, PT REMAINS ALERT AND ORIENTED, CALM, APPROPRIATE, AND COOPERATIVE. PT UP TO BSC AND TO CHAIR WITH 1 PERSON SBA, GAIT STEADY. DR. FISHUFF IN TO SEE PATIENT, SI PRECAUTIONS DC'D. PT MEDICATED WITH HYDRALAZINE FOR BP, OTHER VS REMAIN STABLE, PT REMAINS ON 3L/NC. CBG'S STABLE, PT'S DIET ADVANCED T/O DAY, PT TOLERATED WITHOUT DIFFICULTY. COUGH STRONG. PT DANGLING AT BEDSIDE, REMAINS APPROPRIATE. WILL CONTINUE TO MONITOR.
--- NOTE | 2019-08-30 16:24 | NUR ---
Padmaja had just been extubated a few hours before I visited. Therefore, conversation was difficult for her. She was tearful, but appreciative of gentle gambling counsellor. She tells me she has family who she would like to be her MPOA. But she was unable to provide name and contact without her phone. She was bewildred that her "roommate" had been calling on her behalf. Padmaja appeared lucid and remorseful. [employer] will remain available.
--- NOTE | 2019-08-30 17:26 | NUR ---
MED FLOOR TRANSFER PT'S HR 120'S SIT, HAS BEEN INCREASING SINCE PRECEDEX TURNED OFF. PT DENIES CHEST PAIN OR DISCOMFORT, TELE ORDERED FOR CONTINUED MONITORING. PT DENIES C/O, LS DIMINISHE T/O WITH SLIGHT COARSE SOUNDS ON RUL, O2 3L/NC, THIS IS PT'S HOME DOSE, SPO2 MID 90'S. PT AMBULATES WITH SBA, GAIT SLOW BUT STEADY, HAS BEEN TO BR MULTIPLE TIMES, HAS VOIDED SINCE DIANA [place]. IV SALINE LOCKED. REPORT TO STEPHANY RODRIGEZ. PT TO RM 303 VIA WITH MEDS, CHART, AND BELONGINGS. PT REMAINS CALM AND COOPERATIVE, PLEASANT AND APPROPRIATE.
--- NOTE | 2019-08-30 18:24 | NUR ---
PT TRANSFER PT WAS TRANSPORTED FROM ICU BY W/C. PT ON 3L N/C IS BASELINE PER PT. PT HAS 20G IN L A/C. TELEMETRY ORDER PLACED BY VIVIANE HAMMOND, THIS RN ACKNOWLEDGED ORDER WAITING FOR BOX TO ARRIVE FROM PCU. PT SITTING AT BEDSIDE IN CHAIR. PT REPORTS THROAT BEING SORE ENCOURAGED COLD FLUIDS, COARSE LUNGS THROUGOUT BILATERALLY, ENCOURAGED PT TO DEEP BREATH. PT HAS CALL LOGHT WITH IN REACH WILL COUNTINE TO MONITOR AND REPORT ON ONCOMING SHIFT. REPORT RECIEVED FROM VIVIANE HAMMOND
--- NOTE | 2019-08-31 04:45 | NUR ---
SHIFT SUMMARY ADMITTED FOR OD/AMS. FULL CODE. FOUND TO HAVE POSSIBLE ASPIRATION PNEUMONIA BILATERALLY. LUNGS ARE COARSE. SOME MENTAL DELAYS NOTED. SHE DENIES SI; ADMITS TO DRINKING A FIFTH OF VODKA, FOUND POSITIVE FOR METH, EMS FOUND EMPTY BOTTLES OF SEROQUEL ON SCENE. SHE WAS INTUBATED. TODAY ON MED FLOOR SHE IS ON HER BASELINE OF 3 LPM OF O2, DIANA WAS DC'D - HER UO IS WNL, ADA DIET, 1 STANDBY ASSIST, ACHS CHEMSTICKS, LOW SS INSULIN. SHE LIVES ALONE IN HER APARTMENT. A LETTER IS IN HER CHART STATING SHE MAY NOT HAVE NARCOTICS, ULTRAM, OR BENZOS DUE TO HER HISTORY OF OVERUSE. TELEMETRY: TACHY @ 117 BPM. POISON CONTROL IS MONITORING. HX: DM2, ETOH, HEP C, PTSD, BIPOLAR, ANXIETY, COPD, SUNDAY, HTN, GERD, 1 DUI, 1 MONTH IN [facility].
[2019-08-31 06:01] LABS: Anion Gap 8 mmol/L (6-16); Blood Urea Nitrogen 5 mg/dL (8-24); Bun/Creatinine Ratio 10.6 (12.0-20.0); CO2, Blood 30 mmol/L (21-32); Calcium, Blood 9.1 mg/dL (8.5-10.1); Chloride, Blood 106 mmol/L (98-108); Creatinine, Blood 0.47 mg/dL (0.40-1.00); Glomerular Filtration Rate >60 (60-); Glucose, Blood 93 mg/dL (70-99); Magnesium, Blood 2.1 mg/dL (1.6-2.4); Potassium, Blood 3.1 mmol/L (3.5-5.5); Sodium, Blood 144 mmol/L (136-145)
[2019-08-31 06:02] LABS: BASOPHILS ABSOLUTE AUTO 0.06 K/mm3 (0.00-0.23); BASOPHILS PERCENT AUTO 1 % (0-2); EOSINOPHILS ABSOLUTE AUTO 0.19 K/mm3 (0.00-0.68); EOSINOPHILS PERCENT AUTO 2 % (0-6); Hematocrit 50.4 % (33.0-51.0); Hemoglobin 15.3 g/dL (11.5-16.0); IMMATURE GRAN ABSOLUTE AUTO 0.08 K/mm3 (0.00-0.10); IMMATURE GRAN PERCENT AUTO 1 % (0-1); LYMPHOCYTES PERCENT AUTO 13 % (21-46); MONOCYTES ABSOLUTE AUTO 1.72 K/mm3 (0.16-1.47); MONOCYTES PERCENT AUTO 13 % (4-13); Mean Corpuscular HGB 26.9 pg (26.0-34.0); Mean Corpuscular HGB Conc 30.4 g/dL (31.5-36.5); Mean Corpuscular Volume 89 fL (80-100); Mean Platelet Volume 10.1 fL (9.1-12.4); NEUTROPHILS ABSOLUTE AUTO 9.12 K/mm3 (1.96-9.15); NEUTROPHILS PERCENT AUTO 71 % (41-73); Platelet Count 167 K/mm3 (150-400); RDW Standard Deviation 51.6 fL (35.1-46.3); Red Blood Cell Count 5.69 M/mm3 (3.80-5.20); White Blood Cell Count 12.87 K/mm3 (4.00-11.30)
[2019-08-31] MEDS ORDERED: VISBIOME 112.51 EACH PO (11:21)
[2019-08-31] MEDS ORDERED: CEFU500T30 PO (11:22)
[2019-08-31] MEDS ORDERED: AZIT500 PO (11:22)
[2019-08-31] MEDS ORDERED: Hair, Skin & N1 EACH PO (11:23)
--- NOTE | 2019-08-31 14:09 | NUR ---
DISCHARGE SUMMARY PATIENT IS PLEASANT, ALERT AND ORIENTED. NO ACUTE CONCERNS AT THE TIME OF DISCAHRGE. PATIENT HAD ALL INFORMATION EXPLAINED TO HER. PATIENT CALLED A TAXI ON HER OWN. SHE HAS BEEN GIVEN DISCAHRGE INSTRUCTIONS AND WALKED DOWN BY POWER GRADER OPERATOR.
== END 2019-08-31 14:06 | disposition home or self-care (01) | DRG 917 ==
LOC: ER 19:35 → ERHOLD 21:02 → ICUW 21:02 → MEDS 08-30 17:20 → ENPENDDIS 08-31 10:00 → MEDS 08-31 14:06
PROVIDERS: Emergency Medicine; Internal Medicine; Internal Medicine Pulmonary Disease; ADMIT Family Medicine
PROC: 0BH18EZ Insertion of Endotracheal Airway into Trachea, Via Natural or Artificial Opening Endoscopic (ICD-10-PCS; principal; 2019-08-27)
PROC: 5A1945Z Respiratory Ventilation, 24-96 Consecutive Hours (ICD-10-PCS; 2019-08-27)
DX: T43.211A Poisoning by selective serotonin and norepinephrine reuptake inhibitors, accidental (unintentional), initial encounter (principal); A41.9 Sepsis, unspecified organism; J69.0 Pneumonitis due to inhalation of food and vomit; G92 Toxic encephalopathy; J96.21 Acute and chronic respiratory failure with hypoxia; J96.22 Acute and chronic respiratory failure with hypercapnia; R65.20 Severe sepsis without septic shock; F31.9 Bipolar disorder, unspecified; J44.9 Chronic obstructive pulmonary disease, unspecified; K21.9 Gastro-esophageal reflux disease without esophagitis; F20.9 Schizophrenia, unspecified; M79.7 Fibromyalgia; F10.929 Alcohol use, unspecified with intoxication, unspecified; I10 Essential (primary) hypertension; E11.9 Type 2 diabetes mellitus without complications; G47.33 Obstructive sleep apnea (adult) (pediatric); F15.10 Other stimulant abuse, uncomplicated; F17.210 Nicotine dependence, cigarettes, uncomplicated; Z79.84 Long term (current) use of oral hypoglycemic drugs; Y90.1 Blood alcohol level of 20-39 mg/100 ml
CPT/HCPCS: 31500; 31720; 36415; 36600; 51702; 70450; 71045; 80048; 80053; 80069; 81001; 82803; 82947; 83605; 83735; 83880; 84145; 85025; 85027; 87040; 87086; 93005; 93010; 94002; 94003; 94640; 94644; 94664; 94760; 99285-25; A9270; A9270-GY; C1751; C9113; G0480; J0330; J0360; J0456; J0696; J1650; J1940; J2060; J2310; J2704; J3010; J3411; J7030; J7050